=== PATIENT | male | born 1935 ===

== ENCOUNTER 2017-01-19 01:23 | Inpatient (IN) | payer MEDICARE, OTHER ==
--- NOTE | 2017-01-19 01:26 | ED PDOC ---
Arrival/HPI - General Time Seen by Provider: 01/19/17 01:25 Historian: Family, EMS - History of Present Illness Narrative History of Present Illness (Text): 01/19/17 01:26 James Pride is a 81 year old male, whose past medical history includes diabetes, CHF, pneumonia, diabetic neuropathy, and hypertension, who presents to the Emergency department brought in by EMS in respiratory distress requiring emergent intubation in ER. Family present in Emergency department report patient woke up with abrupt onset of worsening shortness of breath tonight. Limited HPI and ROS due to respiratory distress. PMD: Dr. Norah Kwan Time/Duration: Prior to Arrival Symptom Onset: Sudden Symptom Course: Worsening Severity Level: Severe Activities at Onset: Rest, Light Context: Home Past Medical History - Provider Review Nursing Documentation Reviewed: Yes - Infectious Disease Hx of Infectious Diseases: None - Tetanus Immunization Tetanus Immunization: Unknown - Cardiac Hx Cardiac Disorders: Yes Hx Congestive Heart Failure: Yes Hx Hypertension: Yes - Pulmonary Hx Respiratory Disorders: Yes Hx Pneumonia: Yes (HAD DOUBLE PNEUMONIA H/O) - Neurological Hx Neurological Disorder: Yes (NEUROPATHY) - HEENT Hx HEENT Disorder: Yes Hx Cataracts: Yes (BILATERAL SX WITH LENS IMPLANT) - Renal Hx Renal Disorder: No - Endocrine/Metabolic Hx Endocrine Disorders: Yes Hx Diabetes Mellitus Type 2: Yes - Hematological/Oncological Hx Blood Disorders: No - Integumentary Hx Dermatological Disorder: No - Musculoskeletal/Rheumatological Hx Falls: No - Gastrointestinal Hx Gastrointestinal Disorders: No - Genitourinary/Gynecological Hx Genitourinary Disorders: No - Psychiatric Hx Psychophysiologic Disorder: Yes (BEER DRINKER H/O) Hx Depression: No Hx Emotional Abuse: No Hx Physical Abuse: No Hx Substance Use: No - Past Surgical History Past Surgical History: No Previous - Suicidal Assessment Feels Threatened In Home Enviroment: No Family/Social History - Physician Review Nursing Documentation Reviewed: Yes Family/Social History: No Known Family HX Smoking Status: Never Smoked Hx Alcohol Use: Yes (USED TO DRINK BEER.H/O) Hx Substance Use: No Allergies/Home Meds Allergies/Adverse Reactions: Allergies No Known Allergies Allergy (Verified 12/08/16 15:02) Home Medications: Home Meds Medication Instructions Recorded Confirmed Furosemide [Lasix] 40 mg PO DAILY 03/13/14 12/08/16 Simvastatin 40 mg PO DAILY 03/13/14 12/08/16 Gabapentin [Neurontin] 300 mg PO TID 12/08/16 12/08/16 Metoprolol Tartrate [Lopressor] 50 mg PO BID 12/08/16 12/08/16 Naproxen [Naprosyn Tab] 375 mg PO BID 12/08/16 12/08/16 Potassium Chloride [Klor-Con 10] 10 meq PO DAILY 12/08/16 12/08/16 Aspirin [Adult Low Dose Aspirin EC] 81 mg PO DAILY 12/12/16 12/12/16 Doxycycline Hyclate [Doryx] 100 mg PO BID 12/12/16 12/12/16 GlipiZIDE SR [Glucotrol XL] 10 mg PO DAILY 12/12/16 12/12/16 Losartan [Cozaar] 50 mg PO DAILY 12/12/16 12/12/16 Metformin HCl [Glucophage] 500 mg PO BID 12/12/16 12/12/16 hydrALAZINE [Apresoline] 25 mg PO BID 12/12/16 12/12/16 Review of Systems - Review of Systems Systems not reviewed;Unavailable: Respiratory Distress Respiratory: SOB Physical Exam Vital Signs Reviewed: Yes Vital Signs Temp Pulse Resp BP Pulse Ox 01/19/17 04:11 62 62 H 101/61 96 01/19/17 03:33 66 20 107/63 99 01/19/17 03:00 73 20 138/82 100 01/19/17 02:00 97.5 F L 78 22 129/79 100 01/19/17 01:50 80 29 H 165/89 H 99 01/19/17 01:37 165/89 H 01/19/17 01:25 98.8 F 100 H 32 H 139/102 H 99 Temperature: Afebrile Blood Pressure: Hypertensive Pulse: Tachycardic Respiratory Rate: Tachypneic Appearance: Positive for: Non-Toxic, Uncomfortable, Other (Severe respiratory distress) Pain Distress: None Mental Status: Positive for: other (Non-communicative) - Systems Exam Head: Present: Atraumatic, Normocephalic Pupils: Present: PERRL Extroacular Muscles: Present: EOMI Conjunctiva: Present: Normal Mouth: Present: Moist Mucous Membranes Respiratory/Chest: Present: Respiratory Distress, Accessory Muscle Use, Rales ( Rales bilaterally), Tachypneic Cardiovascular: Present: Normal S1, S2, Tachycardic. No: Murmurs Abdomen: Present: Normal Bowel Sounds. No: Tenderness, Distention, Peritoneal Signs Upper Extremity: Present: Normal Inspection. No: Cyanosis, Edema Lower Extremity: Present: Normal Inspection. No: Edema Neurological: Present: CN II-XII Intact, Other (Agitated, non-communicative) Skin: Present: Warm, Dry, Normal Color. No: Rashes Psychiatric: Present: Agitated Medical Decision Making ED Course and Treatment: 01/19/17 01:26 Impression: 81 year old male brought in for severe respiratory distress. Differential Diagnosis include but are not limited to: CHF exacerbation vs. pneumonia vs. respiratory failure vs. ACS Plan: -- EKG -- Chest X-ray -- Labs, cardiac enzymes, BNP -- Etomidate -- Lasix -- Propofol -- Reassess and disposition Prior Visits: Notes and results from previous visits were reviewed. 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 Timeout: A timeout to verify the correct patient, procedure, and site was performed. Indication: Severe respiratory distress Pre-oxygenation: [id number], Medications: Etomidate, Propofol. See MAR for details. ETT Size: 7.5 gauge Confirmation: Cords directly visualized as tube passed, good bilateral breath sounds, positive CO2 detector color change, tube fogging, adequate chest rise, improving pulse oximetry reading, improved skin color, and absence of gastric sounds,. ETT Secured: The cuff was inflated and the tube was secured appropriately at a distance of 21 cm at the lip. Post-Procedure: There were no immediate complications. CXR Confirmation: Yes 01/19/17 02:38 Reviewed EKG, NSR at 78 bpm. 1st degree AV block, LAD, inferior infarct. Non- specific ST/T wave changes. Reviewed radiology, Chest X-ray shows ET tube above ramiro, increased pulmonary vascular congestion. 01/19/17 03:[address] Kwan, who is aware and agrees with plan. Accepts pt in to her service. Requests consult with Rajendra and Dr. Gomez on consult. 01/19/17 03:[address] Wise, electrical products engineer, who is aware and agrees with plan. technical operations vice president notified. Pt will be admitted to the ICU for respiratory failure and CHF under Dr. Kwan' s service. - Critical Care Critical Care Minutes: 30 minutes - Lab Interpretations Microbiology Results: Microbiology Results 01/19/17 01:45 Blood Blood Culture - Preliminary NO GROWTH AFTER 24 HOURS 01/19/17 01:15 Blood Blood Culture - Preliminary NO GROWTH AFTER 24 HOURS Lab Results: 01/19/17 02:21 01/19/17 02:21 Lab Results 01/19/17 02:40: pCO2 42, pO2 322.0 H, HCO3 24.3, ABG pH 7.37, ABG Total CO2 25.6 , ABG O2 Saturation 99.3 H, ABG O2 Content 14.1 L, ABG Base Excess -1.0, ABG Hemoglobin 9.7 L, ABG Carboxyhemoglobin 1.2, POC ABG HHb (Measured) 0.7, ABG Methemoglobin 0.9, ABG O2 Capacity 14.2 L, Hgb O2 Saturation 97.2, FiO2 100.0 01/19/17 02:22: Phosphorus 5.6 H, Magnesium 2.2 01/19/17 02:21: WBC 15.4 H D, RBC 3.65, Hgb 10.6 L, Hct 32.5 L, MCV 89.0, MCH 29.0, MCHC 32.6, RDW 14.0, Plt Count 343, MPV 10.5, PT 10.2, INR 0.94, APTT 25.4 , Sodium 139, Potassium 3.8, Chloride 101, Carbon Dioxide 27, Anion Gap 15, BUN 28 H, Creatinine 2.2 H, Est GFR ( Amer) 35, Est GFR (Non-Af Amer) 29, Random Glucose 240 H, Calcium 8.6, Total Bilirubin 0.7, AST 29, ALT 31, Alkaline Phosphatase 86, Lactate Dehydrogenase 545, Total Creatine Kinase 101, Troponin I < 0.01 D, NT-Pro-B Natriuret Pep 2080 H, Total Protein 7.2, Albumin 3.9, Globulin 3.3, Albumin/Globulin Ratio 1.2 I have reviewed the lab results: Yes - RAD Interpretation Radiology Orders: 01/19/17 01:42 CHEST PORTABLE [RAD] Stat Flat Folder: ED Physician - EKG Interpretation Interpreted by ED Physician: Yes Type: 12 lead EKG - Medication Orders Current Medication Orders: Enoxaparin Sodium (Lovenox) 30 mg SC DAILY [facility] Last Admin: 01/20/17 09:43 Dose: 30 MG Subcutaneous Administrations Document 01/20/17 09:43 [email or web address] (Rec: 01/20/17 09:43 [id number] [facility]- MEDICAL NURSE) Injection Site MAR Injection Site Left Abdomen Charges for Administration # of Subcutaneous Administrations 1 Furosemide (Lasix) 30 mg IVP BID [facility] Last Admin: 01/20/17 10:01 Dose: 30 MG MAR Blood Pressure Document 01/20/17 10:01 [email or web address] (Rec: 01/20/17 10:01 [email or web address] [facility]- MEDICAL NURSE) Blood Pressure Blood Pressure (100/60-150/90) 146/72 IVP Administration Document 01/20/17 10:01 [email or web address] (Rec: 01/20/17 10:01 [email or web address] [facility]- MEDICAL NURSE) Charges for Administration # of IVP Administrations 1 Azithromycin (Zithromax 500mg In Ns) 250 mls @ 167 mls/hr IVPB DAILY [facility] PRN Reason: Protocol Last Admin: 01/20/17 09:40 Dose: 167 MLS/HR eMAR Start Stop Document 01/20/17 09:40 [email or web address] (Rec: 01/20/17 09:41 [email or web address] [facility]- MEDICAL NURSE) Intravenous Solution Start Date 01/20/17 Start Time 09:40 End Date 01/20/17 End time 11:10 Total Infusion Time 90 Ceftriaxone Sodium (Rocephin 1 Gram Ivpb) 100 mls @ 100 mls/hr IVPB DAILY [facility] PRN Reason: Protocol Last Admin: 01/20/17 09:40 Dose: 100 MLS/HR eMAR Start Stop Document 01/20/17 09:40 [email or web address] (Rec: 01/20/17 09:40 [email or web address] [facility]- MEDICAL NURSE) Intravenous Solution Start Date 01/20/17 Start Time 09:40 End Date 01/20/17 End time 10:40 Total Infusion Time 60 Insulin Human Regular (Humulin R Low) 0 units SC ACHS [facility] PRN Reason: Protocol Last Admin: 01/20/17 16:18 Dose: Not Given Non-Admin Reason: Blood Sugar Parameter MAR Blood Glucose Document 01/20/17 16:18 [email or web address] (Rec: 01/20/17 16:18 [id number]) Blood Glucose Finger Stick Blood Glucose (70-120) 135 Metoprolol Tartrate (Lopressor) 50 mg PO BID [facility] Last Admin: 01/20/17 09:41 Dose: 50 MG MAR Pulse and Blood Pressure Document 01/20/17 09:41 [email or web address] (Rec: 01/20/17 09:42 [email or web address] [facility]) Pulse Pulse Rate (60-90) 75 Blood Pressure Blood Pressure (100/60-150/90) 146/72 Pantoprazole Sodium (Protonix Inj) 40 mg IVP DAILY [facility] Last Admin: 01/20/17 09:44 Dose: 40 MG IVP Administration Document 01/20/17 09:44 [email or web address] (Rec: 01/20/17 09:44 [email or web address] [facility]) Charges for Administration # of IVP Administrations 1 Potassium Chloride (Klor-Con 10) 10 meq PO BRK [facility] Discontinued Medications Enoxaparin Sodium (Lovenox) 30 mg SC DAILY [facility] PRN Reason: Protocol Enoxaparin Sodium (Lovenox) 40 mg SC DAILY [facility] PRN Reason: Protocol Enoxaparin Sodium (Lovenox) 40 mg SC DAILY [facility] Last Admin: 01/19/17 09:37 Dose: 40 MG Subcutaneous Administrations Document 01/19/17 09:37 RAMOM (Rec: 01/19/17 09:37 RAMOM [facility]) Injection Site MAR Injection Site Left Abdomen Charges for Administration # of Subcutaneous Administrations 1 Enoxaparin Sodium (Lovenox) 70 mg SC DAILY [facility] Etomidate (Amidate) 20 mg IVP STAT STA Stop: 01/19/17 01:46 Last Admin: 01/19/17 01:30 Dose: 20 MG IVP Administration Document 01/19/17 01:30 BR[facility] (Rec: 01/19/17 02:23 [id number]) Charges for Administration # of IVP Administrations 1 Furosemide (Lasix) Confirm Administered Dose 100 mg .ROUTE .STK-MED ONE Stop: 01/19/17 01:38 Last Admin: 01/19/17 02:24 Dose: Furosemide (Lasix) 80 mg IVP ONCE ONE Stop: 01/19/17 01:46 Last Admin: 01/19/17 01:37 Dose: 80 MG MAR Blood Pressure Document 01/19/17 01:37 BRADFORD (Rec: 01/19/17 02:24 [facility] [id number]) Blood Pressure Blood Pressure (100/60-150/90) 165/89 IVP Administration Document 01/19/17 01:37 [facility] (Rec: 01/19/17 02:24 [id number] [id number]) Charges for Administration # of IVP Administrations 1 Furosemide (Lasix) 60 mg IVP BID [facility] Last Admin: 01/19/17 09:37 Dose: 60 MG MAR Blood Pressure Document 01/19/17 09:37 RAMOM (Rec: 01/19/17 09:37 RAMOM [facility]- MEDICAL NURSE) Blood Pressure Blood Pressure (100/60-150/90) 166/99 IVP Administration Document 01/19/17 09:37 RAMOM (Rec: 01/19/17 09:37 RAMOM [facility]- MEDICAL NURSE) Charges for Administration # of IVP Administrations 1 Furosemide (Lasix) 20 mg IVP ONCE ONE Stop: 01/19/17 17:39 Last Admin: 01/19/17 18:07 Dose: 20 MG MAR Blood Pressure Document 01/19/17 18:07 RAMOM (Rec: 01/19/17 18:07 RAMOM [facility]- MEDICAL NURSE) Blood Pressure Blood Pressure (100/60-150/90) 136/52 IVP Administration Document 01/19/17 18:07 RAMOM (Rec: 01/19/17 18:07 RAMOM [facility]- MEDICAL NURSE) Charges for Administration # of IVP Administrations 1 Furosemide (Lasix) Confirm Administered Dose 40 mg .ROUTE .STK-MED ONE Stop: 01/20/17 09:37 Last Admin: 01/20/17 09:41 Dose: Propofol (Diprivan) 100 mls @ 2.244 mls/hr IV .Q24H PRN; Protocol; 5 MCG/KG/MIN PRN Reason: TITRATE PER MD ORDER Last Titration: 01/19/17 07:50 Dose: 0 MCG/KG/MIN Titration Intervention Document 01/19/17 07:50 RAMOM (Rec: 04/06/17 08:03 RAMOM [facility]- MEDICAL NURSE) Titration Dosing Titration Dose 0 IV Rate 0 Intake/Decrease Pause Azithromycin (Zithromax 500mg In Ns) 250 mls @ 166.667 mls/hr IV STAT STA PRN Reason: Protocol Stop: 01/19/17 05:08 Last Admin: 01/19/17 04:00 Dose: 166.667 MLS/HR eMAR Start Stop Document 01/19/17 04:00 BRADFORD (Rec: 01/19/17 04:01 [id number] [id number]) Intravenous Solution Start Date 01/19/17 Start Time 04:00 End Date 01/19/17 End time 05:00 Total Infusion Time 60 Ceftriaxone Sodium (Rocephin 1 Gram Ivpb) 100 mls @ 200 mls/hr IV ONCE [facility] PRN Reason: Protocol Stop: 01/19/17 04:08 Last Admin: 01/19/17 04:00 Dose: 200 MLS/HR eMAR Start Stop Document 01/19/17 04:00 BRADFORD (Rec: 01/19/17 04:00 [facility] [id number]) Intravenous Solution Start Date 01/19/17 Start Time 04:00 End Date 01/19/17 End time 04:30 Total Infusion Time 30 Potassium Chloride/Dextrose (Potassium Chl 40 Meq In D5w) 250 mls @ 60 mls/hr IV .Q4H10M [facility] Potassium Chloride (Potassium Chloride 10 Meq/100 Ml) 100 mls @ 100 mls/hr IVPB Q1H [facility] Stop: 01/19/17 14:29 Last Admin: 01/19/17 13:48 Dose: 100 MLS/HR eMAR Start Stop Document 01/19/17 13:48 RAMOM (Rec: 01/19/17 13:48 RAMOM [facility]) Intravenous Solution Start Date 01/19/17 Start Time 13:50 End Date 01/19/17 End time 14:50 Total Infusion Time 60 Potassium Chloride (K-Dur 20 Meq Er Tab) 40 meq PO STAT STA Stop: 01/20/17 11:32 Last Admin: 01/20/17 11:43 Dose: 40 MEQ - Scribe Statement The provider has reviewed the documentation as recorded by the Mariusz Robbins Provider Attestation: All medical record entries made by the Scribe were at my direction and personally dictated by me. I have reviewed the chart and agree that the record accurately reflects my personal performance of the history, physical exam, medical decision making, and the department course for this patient. I have also personally directed, reviewed, and agree with the discharge instructions and disposition. Disposition/Present on Arrival - Present on Arrival Any Indicators Present on Arrival: No History of DVT/PE: No History of Uncontrolled Diabetes: No Urinary Catheter: No History of Decub. Ulcer: No History Surgical Site Infection Following: None - Disposition Have Diagnosis and Disposition been Completed?: Yes Diagnosis: CHF exacerbation, Pneumonia, Respiratory failure Disposition: HOSPITALIZED Disposition Time: 03:43 Patient Plan: Admission Patient Problems: Current Active Problems Problem Status Diagnosed CHF exacerbation Acute Pneumonia Acute Respiratory failure Acute Condition: GUARDED
[2017-01-19] MEDS ORDERED: Etomidate 20 mg/10ml Inj IVP STA (01:45)
[2017-01-19 03:02] LABS: HEMATOCRIT 32.5 % (42.0-52.0); MEAN CORPUSCULAR HGB CONC 32.6 g/dl (31.0-37.0); MEAN PLATELET VOLUME 10.5 fl (7.0-11.0)
[2017-01-19 03:02] LABS: ARTERIAL BLOOD GAS HCO3 24.3 mmol/L (21-28); ARTERIAL BLOOD GAS O2 CAPACITY 14.2 mL/dl (16-24); ARTERIAL BLOOD GAS O2 CONTENT 14.1 ML/dl (15-23); ARTERIAL BLOOD GAS PH 7.37 (7.35-7.45); ARTERIAL BLOOD HGB O2 SAT 97.2 % (95.0-98.0); CARBOXYHEMOGLOBIN 1.2 % (0.5-1.5); HHB 0.7 % (0-5); METHEMOGLOBIN 0.9 % (0.0-3.0)
[2017-01-19 03:06] LABS: INR 0.94 (0.93-1.08); PARTIAL THROMBOPLASTIN TIME 25.4 Seconds (23.7-30.8)
[2017-01-19 03:07] LABS: ALB/GLOB RATIO 1.2 (1.1-1.8); ALKALINE PHOSPHATASE 86 U/L (38-133); ALT/SGPT 31 U/L (7-56); AST/SGOT 29 U/L (15-59); BILIRUBIN,TOTAL 0.7 mg/dL (0.2-1.3); BLOOD UREA NITROGEN 28 mg/dL (7-21); CALCIUM 8.6 mg/dL (8.4-10.5); CARBON DIOXIDE 27 mmol/L (21-33); CHLORIDE 101 mmol/L (98-107); GFR AFRICAN-AMERICAN 35; GLUCOSE,RANDOM 240 mg/dL (70-110); POTASSIUM 3.8 mmol/L (3.6-5.0); SODIUM 139 mmol/L (132-148); TOTAL PROTEIN 7.2 g/dL (5.8-8.3)
[2017-01-19 03:09] LABS: WHITE BLOOD COUNT 15.4 10^3/ul (4.5-11.0)
[2017-01-19 03:24] LABS: TROPONIN I < 0.01 ng/mL
[2017-01-19] MEDS ORDERED: cefTRIAXone 1 gm 100 ML IV STA (03:39)
[2017-01-19] MEDS ORDERED: Azithromycin 500MG/NS 250ml 250 ML IV STA (03:39)
[2017-01-19 04:49] LABS: MAGNESIUM 2.2 mg/dL (1.7-2.2); PHOSPHOROUS 5.6 mg/dL (2.5-4.5)
[2017-01-19 06:31] LABS: ARTERIAL BLOOD GAS HCO3 23.7 mmol/L (21-28); ARTERIAL BLOOD GAS O2 CAPACITY 14.9 mL/dl (16-24); ARTERIAL BLOOD GAS O2 CONTENT 14.7 ML/dl (15-23); ARTERIAL BLOOD GAS PH 7.35 (7.35-7.45); ARTERIAL BLOOD HGB O2 SAT 96.2 % (95.0-98.0); CARBOXYHEMOGLOBIN 1.5 % (0.5-1.5); HHB 1.3 % (0-5)
--- NOTE | 2017-01-19 06:41 | CP.PCM.CON ---
<ShivamDavid - Last Filed: 01/19/17 07:06> History of Present Illness - History of Present Illness History of Present Illness: ICU Consult Note - David Langley PGY 1 HPI: Patient is a 81yo male with past medical history of congestive heart failure (LVEF 45-50% on 11/2016), diabetes mellitus type 2, diabetic neuropathy and hypertension that presented to [facility] via EMS in respiratory distress and was subsequently emergently intubated in the ED. Family was present at bedside and reported that the patient woke up c/o sudden onset shortness of breath. They reported that the patient had been noncompliant with his lasix medication if he felt his blood pressure was low. On arrival to the ED, patient's vitals were as follows: temperature 98.8F, blood pressure 139/ 102, heart rate 100bpm, respiratory rate 32, o2 sat 99% on BiPAP. His labs were notable for a WBC count of 15.4, BUN/Cr 28/2.2, BNP 2080. An EKG revealed normal sinus rhythm at 78bpm with 1st degree AV block, LAD and nonspecific ST-T wave changes. Chest xray revealed increased pulmonary vascular congestion consistent with CHF. The patient is currently on PRVC 400/20/5/100%. He was subsequently taken to the ICU for further management and treatment of acute decompensated congestive heart failure. 12point ROS limited due to patient status PMHx: CHF, DM2, diabetic neuropathy, hypertension, hypercholesterolemia PSHx: unknown Allergies: NKDA Family Hx: Noncontributory Social Hx: No history of smoking, alcohol and illicit drug use PMD: Dr. Norah Kwan Past Patient History - Infectious Disease Hx of Infectious Diseases: None - Tetanus Immunizations Tetanus Immunization: Unknown - Past Social History Smoking Status: Never Smoked - CARDIAC Hx Cardiac Disorders: Yes Hx Congestive Heart Failure: Yes Hx Hypertension: Yes - PULMONARY Hx Respiratory Disorders: Yes Hx Pneumonia: Yes (HAD DOUBLE PNEUMONIA H/O) - NEUROLOGICAL Hx Neurological Disorder: Yes (NEUROPATHY) - HEENT Hx HEENT Problems: Yes Hx Cataracts: Yes (BILATERAL SX WITH LENS IMPLANT) - RENAL Hx Chronic Kidney Disease: No - ENDOCRINE/METABOLIC Hx Endocrine Disorders: Yes Hx Diabetes Mellitus Type 2: Yes - HEMATOLOGICAL/ONCOLOGICAL Hx Blood Disorders: No - INTEGUMENTARY Hx Dermatological Problems: No - MUSCULOSKELETAL/RHEUMATOLOGICAL Hx Falls: No - GASTROINTESTINAL Hx Gastrointestinal Disorders: No - GENITOURINARY/GYNECOLOGICAL Hx Genitourinary Disorders: No - PSYCHIATRIC Hx Psychophysiologic Disorder: Yes (BEER DRINKER H/O) Hx Depression: No Hx Emotional Abuse: No Hx Physical Abuse: No Hx Substance Use: No - SURGICAL HISTORY Hx Surgeries: Yes (BILATERAL CATARACT SX H/O) - ANESTHESIA Hx Anesthesia: No Hx Anesthesia Reactions: No Hx Malignant Hyperthermia: No Meds Allergies/Adverse Reactions: Allergies Allergy/AdvReac Type Severity Reaction Status Date / Time No Known Allergies Allergy Verified 12/08/16 15:02 - Medications Medications: Current Medications Enoxaparin Sodium (Lovenox) 30 mg SC DAILY [facility] PRN Reason: Protocol Furosemide (Lasix) 60 mg IVP BID [facility] Propofol (Diprivan) 100 mls @ 2.244 mls/hr IV .Q24H PRN; Protocol; 5 MCG/KG/MIN PRN Reason: TITRATE PER MD ORDER Last Admin: 01/19/17 01:55 Dose: 2.244 mls/hr Azithromycin (Zithromax 500mg In Ns) 250 mls @ 167 mls/hr IVPB DAILY [facility] PRN Reason: Protocol Ceftriaxone Sodium (Rocephin 1 Gram Ivpb) 100 mls @ 100 mls/hr IVPB DAILY [facility] PRN Reason: Protocol Insulin Human Regular (Humulin R Low) 0 units SC ACHS [facility] PRN Reason: Protocol Metoprolol Tartrate (Lopressor) 50 mg PO BID [facility] Pantoprazole Sodium (Protonix Inj) 40 mg IVP DAILY [facility] Physical Exam - Constitutional Appears: In Acute Distress - Head Exam Head Exam: ATRAUMATIC, NORMAL INSPECTION, NORMOCEPHALIC - ENT Exam ENT Exam: Mucous Membranes Moist - Respiratory Exam Respiratory Exam: Rales (rales bilaterally). absent: Clear to Auscultation Bilateral, Rhonchi, Wheezes - Cardiovascular Exam Cardiovascular Exam: +S1, +S2. absent: Gallop, Rubs - GI/Abdominal Exam GI & Abdominal Exam: Soft. absent: Distended, Firm, Guarding, Rebound, Tenderness - Extremities Exam Extremities exam: Positive for: normal inspection, pedal edema (2+ pitting edema ) - Neurological Exam Additional comments: intubated and sedated on propofol drip - Skin Skin Exam: Dry, Intact, Normal Color, Warm Results - Vital Signs Recent Vital Signs: Last Vital Signs Temp 97.5 F L 01/19/17 06:29 Pulse 62 01/19/17 06:29 Resp 20 01/19/17 06:29 BP 104/62 01/19/17 06:29 Pulse Ox 97 01/19/17 06:29 - Labs Result Diagrams: 01/19/17 02:21 01/19/17 02:21 Labs: Laboratory Results - last 24 hr 01/19/17 04:18 Lactic Acid 1.9 Assessment & Plan - Assessment and Plan (Free Text) Assessment: 81yo male with history of congestive heart failure (LVEF 45-50% on 11/2016), diabetes mellitus type 2, diabetic neuropathy and hypertension admitted to the ICU for acute hypoxemic respiratory failure secondary to decompensated congestive heart failure. Plan: Neuro: -Patient intubated and sedated on propofol drip -Maintain normothermia Cardio: -Maintain hemodynamic monitoring with goal MAP > 65 -Echocardiogram from 11/2016 reviewed; revealed LVEF of 45-50%; see full report -EKG reviewed -Continue with Lasix 60mg IV BID -Continue with metoprolol 50mg PO BID -HOB > 30' -Strict I's and O's -Daily weight -Cardiology consulted - Dr. Drew Pulm: -Patient intubated and sedated on PRVC 400/20/5/100% -O2 supplementation to maintain spo2>90 and Pao2>60 -CXR reviewed; revealed increased pulmonary vascular congestion -Pulmonary consulted - Dr. Gomez GI: -NPO -GI prophylaxis with protonix Endo: -Maintain euglycemia with blood sugars between 140-180's -Fingersticks ACHS -Humulin low dose ISS Renal: -Monitor and replete electrolytes as needed -Strict I's and O's -Daily weight -Continue to monitor renal function Heme: -DVT prophylaxis with lovenox ID: -Patient afebrile however has leukocytosis and has history of recent admission for pneumonia -Continue with rocephin/azithromycin -Procalcitonin pending -Blood/urine cultures pending Patient seen and case discussed with attending, Dr. Wise - Date & Time Date: 01/19/17 Time: 06:43 <Collin Wise MD - Last Filed: 01/19/17 07:34> Meds - Medications Medications: Current Medications Enoxaparin Sodium (Lovenox) 40 mg SC DAILY [facility] Furosemide (Lasix) 60 mg IVP BID [facility] Propofol (Diprivan) 100 mls @ 2.244 mls/hr IV .Q24H PRN; Protocol; 5 MCG/KG/MIN PRN Reason: TITRATE PER MD ORDER Last Admin: 01/19/17 01:55 Dose: 2.244 mls/hr Azithromycin (Zithromax 500mg In Ns) 250 mls @ 167 mls/hr IVPB DAILY [facility] PRN Reason: Protocol Ceftriaxone Sodium (Rocephin 1 Gram Ivpb) 100 mls @ 100 mls/hr IVPB DAILY [facility] PRN Reason: Protocol Insulin Human Regular (Humulin R Low) 0 units SC ACHS [facility] PRN Reason: Protocol Metoprolol Tartrate (Lopressor) 50 mg PO BID [facility] Pantoprazole Sodium (Protonix Inj) 40 mg IVP DAILY [facility] Results - Vital Signs Recent Vital Signs: Last Vital Signs Temp 97.5 F L 01/19/17 06:29 Pulse 62 01/19/17 06:29 Resp 20 01/19/17 06:29 BP 104/62 01/19/17 06:29 Pulse Ox 97 01/19/17 06:29 - Labs Result Diagrams: 01/19/17 02:21 01/19/17 02:21 Labs: Laboratory Results - last 24 hr 01/19/17 01/19/17 01/19/17 04:18 06:00 07:26 pCO2 43 pO2 117.0 H HCO3 23.7 ABG pH 7.35 ABG Total CO2 25.0 ABG O2 Saturation 98.7 H ABG O2 Content 14.7 L ABG Base Excess -1.9 ABG Hemoglobin 10.7 L ABG Carboxyhemoglobin 1.5 POC ABG HHb (Measured) 1.3 ABG Methemoglobin 1.0 ABG O2 Capacity 14.9 L Hgb O2 Saturation 96.2 FiO2 60.0 POC Glucose (mg/dL) 207 H Lactic Acid 1.9 Attending/Attestation - Attestation I have personally seen and examined this patient.: Yes I have fully participated in the care of the patient.: Yes I have reviewed all pertinent clinical information: Yes Notes (Text): 01/19/17 07:32 -I agree with the above consult H&P completed by the resident physician -Briefly, the patient is a 81 year old man with a history of CHF, DM-2 and HTN who presented with acute respiratory failure due to acute CHF exacerbation, requiring intubation in the ED. He will be diuresed with IV Lasix and also treated empirically for PNA given an elevated WBC of 16.5.
[2017-01-19 07:14] VITALS: BMI 27.4
[2017-01-19] MEDS: Insulin Reg-LOW-Coverage SC SCH ×4 (08:06→22:00)
[2017-01-19 08:28] LABS: TROPONIN I 0.02 ng/mL
[2017-01-19] MEDS: cefTRIAXone 1 gm 100 ML IVPB SCH (09:38)
--- NOTE | 2017-01-19 09:50 | CON ---
DATE: 01/19/2017 This is a 81-year-old gentleman with history of mild systolic left ventricular dysfunction and congestive heart failure who presented this time with increased shortness of breath which was of sudden onset. It is unclear whether patient had chest pain associated with it or not. However, his symptoms very rapidly progressed and by the time he was admitted to [facility], he had to be intubated for impending respiratory failure. No nausea, no vomiting, no diarrhea, no constipation, no chills, no sweats. Chest x-ray showed bilateral vascular congestion. EKG did not show any specific ischemic changes and first set of troponin was negative. He did have acute kidney injury as well and proBNP was also elevated. PAST MEDICAL HISTORY: CHF, left ventricular systolic dysfunction. ALLERGIES: NKDA. FAMILY HISTORY: Noncontributory. HOME MEDICATIONS: Unobtainable. REVIEW OF SYSTEMS: Review of 12 organ systems, other than mentioned in history of present illness, is negative. PHYSICAL EXAMINATION: GENERAL: The patient is off of any drips. The patient is following commands and moves all extremities. The patient is off of sedation and not on any inotrope or vasopressor drip. VITAL SIGNS: Heart rate 67, blood pressure 112/77, respiratory rate 18, end- tidal CO2 on the monitor 42, oxygen saturation 98% on 40% FiO2. The patient tolerates pressure support trial well. He is pulling about 500 mL of tidal volume and his rapid shallow breathing index is 36. HEAD AND NECK: Atraumatic. LUNGS: Clear to auscultation bilaterally. HEART: Regular rate and rhythm. S1, S2 normal. ABDOMEN: Soft, nontender, nondistended. MUSCULOSKELETAL: No C/C/E. NEUROLOGIC: The patient moves all extremities spontaneously. SKIN: Moist. PSYCHIATRIC: The patient is following commands. LABORATORIES: WBC 15.4, hemoglobin 10.6, platelet count 343. Sodium 139, potassium 3.8, chloride 101, carbon dioxide 27, BUN 28, creatinine 2.2, glucose 207, lactic acid 1.9, AST 29, ALT 31. Troponin less than 0.01. ProBNP 2080. INR 0.94. ABG showed 7.35/43/117 on 60% FiO2. CURRENT MEDICATIONS: Regular insulin sliding scale low protocol, Lasix 60 mg IV b.i.d., Lovenox 40 mg subQ daily, Protonix, ceftriaxone daily, azithromycin. Chest x-ray shows bilateral vascular congestion. EKG, no specific signs of ischemia. ASSESSMENT AND PLAN: This is a 81-year-old gentleman who presented with acute onset of shortness of breath and impending respiratory failure in the setting of mild systolic left ventricular dysfunction (ejection fraction 45%) and acute kidney injury. The patient was intubated and diuresis with Lasix 60 mg IV q. 12 started. Today, patient is doing very well on pressure support trial, has good cough, gag reflex, good motor strength in both upper and lower extremities. He is able to lift up his head more than 10 cm off the pillow. His rapid shallow breathing index is 30-40. I do not think he needs any inotropic support at present time (bedside POC Echo did not reveal any significant left ventricular systolic dysfunction). Afterload reduction provided by positive pressure ventilation. Preload reduction provided by diuresis. The patient will be extubated to BiPAP, which will also provide pre and afterload reduction. He is on beta-blockers. As his ejection fraction is 45% (very mild) I will defer risk/benefit assessment of afterload reduction with hydralazine/nitro to cardiology service. Second troponin is pending. The patient does not show signs of chest pain and no ischemic changes on EKG. I doubt acute coronary syndrome and rather noncompliance with his home medication (Lasix) would be to blame for his CHF exacerbation, leading up to cardiogenic pulmonary edema and respiratory failure. I will continue to maintain euvolemia , euglycemia, normothermia and oxygen saturation more than 90%. I will continue with deep venous thrombosis and gastrointestinal prophylaxis. Addendum: patient successfully extubated to BPAP-->did well-->switched to NC ccm time 40 min Deniz Calix MD cc: [id number] TT: 01/19/2017 09:49:49 Confirmation # [id number] Dictation # [id number] en MTDD
[2017-01-19] MEDS ORDERED: Enoxaparin 40 mg Syringe SC SCH (10:00)
[2017-01-19] MEDS ORDERED: Enoxaparin 30 mg Syringe SC SCH ×2 (10:00)
[2017-01-19] MEDS ORDERED: POTASSIUM CHL IV SCH (10:00)
[2017-01-19] MEDS ORDERED: D5W IV SCH (10:00)
--- NOTE | 2017-01-19 10:01 | RAD ---
HISTORY: sob/intubated COMPARISON: 03/13/2014 FINDINGS: LUNGS: No active pulmonary disease. PLEURA: No significant pleural effusion identified, no pneumothorax apparent. CARDIOVASCULAR: Mild cardiomegaly. Evaluation limited due to oblique positioning. ET tube tip positioned approximately 4.7 cm above tracheal ramiro. Nasogastric tube extends to upper abdomen. OSSEOUS STRUCTURES: No significant abnormalities. VISUALIZED UPPER ABDOMEN: Normal. OTHER FINDINGS: None. IMPRESSION: ET tube and NG tube are in grossly appropriate position. No acute infiltrate.
[2017-01-19] MEDS ORDERED: Potassium Chloride 20 mEq 100 ML IVPB SCH (10:15)
[2017-01-19] MEDS: Potassium Chloride 10 mEq 100 ML IVPB SCH ×4 (10:42→13:48)
[2017-01-19 15:26] LABS: TROPONIN I 0.02 ng/mL
--- NOTE | 2017-01-19 18:01 | CARD ---
APPROVED REPORT EKG Measurement Heart [id number] CT 230P59 [id number] <Conclusion> Sinus rhythm with 1st degree AV block Possible Left atrial enlargement Left axis deviation Inferior infarct, age undetermined Abnormal ECG
[2017-01-20 06:13] LABS: ADD MANUAL DIFF? NO
[2017-01-20 06:19] LABS: BASO # 0.03 K/mm3 (0.0-2.0); BASO % 0.3 % (0.0-3.0); EOS # 0.3 (0.0-0.7); EOS % 2.8 % (1.5-5.0); GRAN # 6.75 (1.4-6.5); GRAN % 70.6 % (50.0-68.0); HEMATOCRIT 32.8 % (42.0-52.0); LYMPH # 1.3 (1.2-3.4); LYMPH % 13.6 % (22.0-35.0); MEAN CELL VOLUME 87.7 fL (80.0-105.0); MEAN CORPUSCULAR HEMOGLOBIN 28.9 pg (25.0-35.0); MEAN CORPUSCULAR HGB CONC 32.9 g/dl (31.0-37.0); MEAN PLATELET VOLUME 10.3 fl (7.0-11.0); MONO # 1.2 (0.1-0.6); MONO % 12.7 % (1.0-6.0); PLATELET COUNT 324 10^3/uL (120.0-450.0); WHITE BLOOD COUNT 9.6 10^3/ul (4.5-11.0)
[2017-01-20 06:26] LABS: ALB/GLOB RATIO 1.1 (1.1-1.8); BILIRUBIN,TOTAL 0.6 mg/dL (0.2-1.3); CALCIUM 8.6 mg/dL (8.4-10.5); MAGNESIUM 2.1 mg/dL (1.7-2.2); PHOSPHOROUS 4.5 mg/dL (2.5-4.5); POTASSIUM 3.4 mmol/L (3.6-5.0); TOTAL PROTEIN 7.1 g/dL (5.8-8.3)
[2017-01-20 06:37] LABS: TROPONIN I 0.02 ng/mL
--- NOTE | 2017-01-20 07:27 | CON ---
DATE: 01/19/2017 REASON FOR CONSULTATION: Cardiac evaluation, admitted with congestive heart failure, status post res piratory failure, status post intubated, in ICU 129 bed 7. BRIEF CLINICAL HISTORY: This is a 81-year-old male with past medical history of diabetes, hypertensi on, hyperlipidemia, pneumonia, diabetic nephropathy, hypertension, came to the Emergency Room, [facility] for respiratory distress requiring intubation in the Emergency Room. The patient is currently bein g intubated, sedated, unable to give any history. Information obtained from the medical record and f rom the other digital marketing consultant and ER as well as from the previous chart. PAST MEDICAL HISTORY: Significant for coronary artery disease as well as diabetes, hypertension, hyp erlipidemia. PREVIOUS CARDIAC WORKUP: The patient has a most recent echocardiography of 12/09/2016 that shows eje ction fraction 45-50%, mild to moderate mitral regurgitation, trace to mild aortic regurgitation, mil d tricuspid regurgitation, RV systolic pressure of 41, trace pulmonary insufficiency; no pericardial effusion, dated 12/09/2016. The patient had a myocardial perfusion stress test on 12/12/2016 that sh ows abnormal myocardial study, fixed defect, no reversible ischemia, ejection fraction 39%. The yolande ent had a stress test prior to that, 2-1/2 years ago approximately, dated ____ that showed fi xed defect, minimal reversibility, no significant change or improvement, essentially negative stress test, ejection fraction 53% dated ___. Prior to that, patient had also echocardiography 2013 that shows ejection fraction 50-55%, normal, mild hypokinesis of the apical inferior wall noted, trace aortic regurgitation, mild to moderate mitral regurgitation, trace to mild tricuspid regurgita tion. REVIEW OF SYSTEMS: As per HPI. CURRENT MEDICATIONS: The patient is taking at home hydralazine, simvastatin, Naprosyn, metoprolol, m etformin, losartan, gabapentin, Lasix, doxycycline, cyclobenzaprine, aspirin. REVIEW OF SYSTEMS: As per HPI. PHYSICAL EXAMINATION: VITAL SIGNS: Temperature afebrile, heart rate 71, blood pressure 150/91. HEENT: PERRLA. Extraocular muscles intact. NECK: Supple. No carotid bruits. No thyromegaly. CHEST: Clear to auscultation. HEART: S1, S2 regular. ABDOMEN: Soft. EXTREMITIES: Clubbing and cyanosis negative. BLOOD WORKUP: WBC 15.4, hemoglobin 10.6, hematocrit 32.5, platelet count 343. Chemistry shows sodiu m 139, potassium 3.8, chloride 101, carbon dioxide 28, anion gap of 28, BUN 15, creatinine 2.2. Trop onin 0.01. BNP 2080. IMPRESSION: Chronic renal insufficiency, baseline creatinine 2.4 in 11/2016; congestive heart failur e, fluid overload, mild cardiomyopathy, negative stress test, fixed defect on last admission. Echoca rdiogram shows ejection fraction 45%. The chest x-ray is consistent with congestive heart failure. IMPRESSION: Congestive heart failure, renal insufficiency, fluid overload, decreased left ventricula r function, renal insufficiency, chronic kidney disease, last stress test dated 12/12/2016, ejection fraction is 39%, fixed defect. No change from before. Last echocardiogram also dated 12/09/2016: M ildly decreased left ventricular function, ejection fraction 45-50%, normal chamber size, right ventr icular systolic pressure of 41, mild tricuspid regurgitation, trace pulmonary insufficiency, trace to mild ____ regurgitation, mild to moderate ____ regurgitation, trace to mild aortic regurgitation as well as respiratory failure; congestive heart failure, acute on chronic, secondary to systolic dysfun ction. RECOMMENDATION: Continue diuretics. Extubate. Monitor renal function closely. Depending on the ho spital course. So far, no evidence of acute coronary syndrome. Follow up CPK, troponin. Will follo w with you. Give DVT prophylaxis and give 1 mg/kg subQ q. 24 Lovenox, beta rodney. For aggressive control of hypertension, give hydralazine. Avoid nephrotoxic medication. Will follow with you. Thank you, Dr. Kwan, for providing the opportunity in taking care of this patient. Parker Drew MD cc: [id number] TT: 01/19/2017 17:27:50 Confirmation # [id number] Dictation # [id number] mn 01/20/2017 06:26:23
--- NOTE | 2017-01-20 07:38 | CON ---
DATE: 01/19/2017 REFERRING PHYSICIAN: Dr. Kwan REASON FOR ADMISSION: Respiratory failure. HISTORY OF PRESENT ILLNESS: This is a 81-year-old gentleman, well known to me with coronary artery d isease, history of IL, cardiomyopathy, chronic lung disease, sleep apnea syndrome. He is noncomplian t with followup, did not use his BiPAP and was returned back to vendor. Recently discharged after IL . Now admitted again with pulmonary edema. The patient was intubated with respiratory failure. You dietrich, extubated and placed on noninvasive ventilation. Presently, sitting with nasal cannula, feels better. Family is at bedside. Admitted to have cough, shortness of breath. No chest pain, no nause a, no vomiting, no diarrhea. No leg pain or leg swelling. PAST MEDICAL HISTORY: Cardiomyopathy, coronary artery disease, chronic obstructive lung disease, sle ep apnea syndrome. ALLERGIES: None known. SOCIAL HISTORY: Nonsmoker, nondrinker. FAMILY HISTORY: No significant cardiopulmonary disease reported. MEDICATIONS: He is on insulin coverage, Lasix 60 mg twice a day, metoprolol tartrate 50 mg twice a d ay, Lovenox 70 mg subQ daily, Protonix 40 mg daily, Rocephin 1 gram daily, Zithromax 500 mg daily. REVIEW OF SYSTEMS: No headache, no rhinitis. Admits to have loud snoring, daytime sleepy and tired. No chest pain, no nausea, no dysuria, no leg pain or leg swelling. PHYSICAL EXAMINATION: GENERAL: Lying in the bed, head at 45 degrees. VITAL SIGNS: Temp is 98, heart rate 68, respiratory rate is 20, blood pressure 135/97, pulse ox 98% on 35% oxygen. HEENT: Moist mucous membranes. Crowded airway. Mallampati score is 4. NECK: Supple. No JVD. LUNGS: Has a few crackles at the bases, scattered rhonchi. HEART: S1, S2. ABDOMEN: Soft, nontender. No organomegaly. EXTREMITIES: No edema. NEUROLOGIC: Awake, alert, follows simple commands. LABORATORY DATA: Shows hemoglobin 10.6, hematocrit 32.5, WBC 15.4, platelet is 343. INR is 0.94, PT T is 25. ABG shows pH 7.35, pCO2 43, O2 117. This is on vent on 60% oxygen. Sodium 139, potassium 3.8, chloride 101, bicarbonate 27, BUN 28, creatinine 2.2, glucose 240, calcium is 8.6, phosphorus 5. 6, magnesium 2.2, AST 29, ALT 31, alkaline phosphatase is 86. ProBNP 2080. Troponin 0.02. Procalci tonin 0.28. Chest x-ray shows CHF. IMPRESSION AND PLAN: Chronic obstructive lung disease, hypertension, resolving pulmonary infiltrate, sleep apnea syndrome, renal insufficiency, cardiomyopathy. Spoke to patient and family at bedside. All their questions answered. We will continue BiPAP while sleeping. Keep head elevated at 45 degr ees. Inhaled bronchodilator. Continue diuretics. Follow up labs in the morning. Will need to repe at attended sleep study as outpatient. Thank you and we will follow with you. Parker Gomez MD cc: [id number] TT: 01/20/2017 07:38:16 Confirmation # [id number] Dictation # [id number] en
[2017-01-20] MEDS: Insulin Reg-LOW-Coverage SC SCH ×4 (07:44→22:00)
--- NOTE | 2017-01-20 08:00 | HP ---
CHIEF COMPLAINT: Shortness of breath, coughing, chest pain. HISTORY OF PRESENT ILLNESS: The patient is a 81-year-old male with past medical history of non-insulin dependent diabetes mellitus, uncontrolled; congestive heart failure, pneumonia, diabetic nephropathy, hypertension, came to the Emergency Room by EMS in respiratory distress requiring emergent intubation in the ER. was present on the bedside. According to family, patient just abruptly woke up with onset of worsening shortness of breath. First, he called his brother. His plan was to go to the hospital with the car. As soon as he started really shortness of breath and decided that he could not breathe and having chest pain, then they called 911 and brought the patient in the Emergency Room. I saw the patient in the unit. At that time, he was extubated. was on the bedside. Feeling a little bit better. PAST MEDICAL HISTORY: Congestive heart failure, hypertension, history of pneumonia, neuropathy, bilateral lens implants; diabetes mellitus, type 2, noninsulin requiring. FAMILY HISTORY: Father and mother noncontributory. HABITS: Never smoked. Drugs: Never. Alcohol: Used to drink beer, history of socially. ALLERGIES: The patient is not allergic with any medications. HOME MEDICATIONS: Lasix, simvastatin, Neurontin, Lopressor, Naprosyn, aspirin, doxycycline, glipizide, Cozaar, metformin, hydralazine. REVIEW OF SYSTEMS: The patient seen and examined on the bedside in the unit. The patient is extubated. is sitting on the bedside. Having lunch. Feels better. Still having shortness of breath, but it is better. No headache , no dizziness. No chest pain, no palpitation. No hematuria or hematochezia. He does not have fever, does not look toxic. PHYSICAL EXAMINATION: VITAL SIGNS: Temperature 98.6 , blood pressure 135/79, respiratory rate 19, pulse 80 , oxygenation 98%. HEENT: Head normocephalic, atraumatic. Eyes: PERRLA. Extraocular muscles intact. Conjunctivae pink. Eyelids unremarkable. Nose patent. Mucous membranes moist. NECK: Supple. No carotid bruit. No JVD or thyromegaly. CHEST: Bilaterally symmetrical. HEART: S1, S2 positive. LUNGS: Wheezing bilaterally. CARDIOVASCULAR: S1, S2 positive. ABDOMEN: Soft. Bowel sounds present. No organomegaly. EXTREMITIES: No edema, no cyanosis. NEUROLOGIC: The patient is awake, alert and moving all 4 extremities. No focal deficits. LABORATORY DATA: White blood cells 15.4, hemoglobin 10.6, hematocrit 32.5, platelets 343. Sodium 139, potassium 3.8, BUN 28, creatinine 2.2, glucose 207, phosphorus 5.6. Liver function tests within normal limits. BNP 20,080. ASSESSMENT AND PLAN: The patient is a 81-year-old male with leukocytosis, anemia, renal insufficiency, hyperglycemia, congestive heart failure, has history of congestive heart failure, left ventricular ejection fraction of 45-50 % in 11/2016, diabetic nephropathy, hypertension, came with respiratory distress and subsequently in the Emergency Room was intubated, history of pneumonia, left ventricular systolic dysfunction. The patient got Lasix. Today , the patient is doing better. Extubated today. Rapid shallow breathing index is 30-40. Bedside echo did not reveal any significant left ventricular systolic dysfunction. Afterload reduction provided by positive pressure ventilation. Preload reduction provided by diuretics. According to Dr. Calix, looks like patient does not have acute coronary syndrome and rather noncompliance with his home medication, Lasix, would be the blame of his congestive heart failure exacerbation leading up to the cardiac, pulmonary edema and respiratory failure. Continue present treatment. Education done. GI and DVT prophylaxis. Repeat labs. Will follow up. Court Kwan MD cc: [id number] TT: 01/20/2017 07:59:53 mn [id number]
[2017-01-20] MEDS: Azithromycin 500MG/NS 250ml 250 ML IVPB SCH (09:40)
[2017-01-20] MEDS: cefTRIAXone 1 gm 100 ML IVPB SCH (09:40)
[2017-01-20] MEDS: Enoxaparin 30 mg Syringe SC SCH (09:43)
--- NOTE | 2017-01-20 09:50 | CP.CCUPN ---
<Barbi Gabriel - Last Filed: 01/20/17 10:41> CCU Subjective - Physician Review Events Since Last Encounter (Free Text): 01/20/17 09:47 Patient seen and examined bedside. No acute events overnight. Tolerating PO diet. Tolerating NC. Patient denies CP, abd pain, n/v, fevers, chills. Patient states SOB has significantly improved since admission and is almost back to baseline. Critical Care Time Spent (in minutes): 30 CCU Objective - Vital Signs / Intake & Output Vital Signs (Last 4 hours): Vital Signs Temp Pulse Resp BP Pulse Ox 01/20/17 09:41 75 146/72 01/20/17 08:00 98.2 F 77 17 149/81 98 01/20/17 07:00 62 15 141/81 98 01/20/17 06:00 62 17 142/84 98 Intake and Output (Last 8hrs): Intake & Output 01/19/17 01/20/17 01/20/17 22:59 06:59 14:59 Intake Total 878 0 Output Total 3650 1200 Balance -2772 -1200 Weight 165 lb Intake: IV 518 Right Antecubital 500 left antecubital 18 Oral 360 0 Output: Urine 3650 1200 Urethral (Oneill) 3650 1200 Other: Voiding Method Indwelling Catheter Indwelling Catheter # Bowel Movements 0 0 - Physical Exam Head: Positive for: Atraumatic, Normocephalic Pupils: Positive for: PERRL Extroacular Muscles: Positive for: EOMI Conjunctiva: Positive for: Normal Mouth: Positive for: Moist Mucous Membranes Respiratory/Chest: Positive for: Respiratory Distress, Accessory Muscle Use, Rales (Rales bilaterally), Tachypneic Cardiovascular: Positive for: Normal S1, S2, Tachycardic. Negative for: Murmurs Abdomen: Positive for: Normal Bowel Sounds. Negative for: Tenderness, Distention, Peritoneal Signs Upper Extremity: Positive for: Normal Inspection. Negative for: Cyanosis, Edema Lower Extremity: Positive for: Normal Inspection. Negative for: Edema Neurological: Positive for: CN II-XII Intact, Other (Agitated, non-communicative ) Skin: Positive for: Warm, Dry, Normal Color. Negative for: Rashes Psychiatric: Positive for: Agitated - Medications Active Medications: Active Medications Generic Name Dose Route Start Last Admin Trade Name Freq PRN Reason Stop Dose Admin Enoxaparin Sodium 30 mg 01/20/17 10:00 01/20/17 09:43 Lovenox SC 30 mg DAILY FADY Administration Furosemide 60 mg 01/19/17 10:00 01/19/17 09:37 Lasix IVP 60 mg BID FADY Administration Azithromycin 250 mls @ 167 mls/hr 01/20/17 10:00 01/20/17 09:40 Zithromax 500mg In Ns IVPB 167 mls/hr DAILY FADY Administration Protocol Ceftriaxone Sodium 100 mls @ 100 mls/hr 01/19/17 10:00 01/20/17 09:40 Rocephin 1 Gram Ivpb IVPB 100 mls/hr DAILY FADY Administration Protocol Insulin Human Regular 0 units 01/19/17 07:30 01/20/17 07:44 Humulin R Low SC Not Given ACHS FADY Protocol Metoprolol Tartrate 50 mg 01/19/17 10:00 01/20/17 09:41 Lopressor PO 50 mg BID FADY Administration Pantoprazole Sodium 40 mg 01/19/17 10:00 01/20/17 09:44 Protonix Inj IVP 40 mg DAILY FADY Administration - Patient Studies Lab Studies: Lab Studies 01/20/17 01/20/17 01/19/17 Range/Units 07:23 06:00 22:01 WBC 9.6 D (4.5-11.0) 10^3/ul RBC 3.74 (3.5-6.1) 10^6/uL Hgb 10.8 L (14.0-18.0) gm/dL Hct 32.8 L (42.0-52.0) % MCV 87.7 (80.0-105.0) fL MCH 28.9 (25.0-35.0) pg MCHC 32.9 (31.0-37.0) g/dl RDW 14.0 (11.5-14.5) % Plt Count 324 (120.0-450.0) 10^3/uL MPV 10.3 (7.0-11.0) fl Gran % 70.6 H (50.0-68.0) % Lymph % (Auto) 13.6 L (22.0-35.0) % [place] % (Auto) 12.7 H (1.0-6.0) % Eos % (Auto) 2.8 (1.5-5.0) % Baso % (Auto) 0.3 (0.0-3.0) % Gran # 6.75 H (1.4-6.5) Lymph # 1.3 (1.2-3.4) [place] # 1.2 H (0.1-0.6) Eos # 0.3 (0.0-0.7) Baso # 0.03 (0.0-2.0) K/mm3 Sodium 142 (132-148) mmol/L Potassium 3.4 L (3.6-5.0) mmol/L Chloride 102 (98-107) mmol/L Carbon Dioxide 30 (21-33) mmol/L Anion Gap 13 (10-20) BUN 31 H (7-21) mg/dL Creatinine 2.5 H (0.5-1.4) mg/dL Est GFR ( Amer) 30 Est GFR (Non-Af Amer) 25 POC Glucose (mg/dL) 112 H 88 (65-110) mg/dL Random Glucose 105 (70-110) mg/dL Calcium 8.6 (8.4-10.5) mg/dL Phosphorus 4.5 (2.5-4.5) mg/dL Magnesium 2.1 (1.7-2.2) mg/dL Total Bilirubin 0.6 (0.2-1.3) mg/dL AST 24 (15-59) U/L ALT 40 (7-56) U/L Alkaline Phosphatase 79 (38-133) U/L Lactate Dehydrogenase 473 (333-699) U/L Total Creatine Kinase 67 (35-230) U/L Troponin I 0.02 ng/mL Total Protein 7.1 (5.8-8.3) g/dL Albumin 3.7 (3.0-4.8) g/dL Globulin 3.4 gm/dL Albumin/Globulin Ratio 1.1 (1.1-1.8) Triglycerides 206 H (35-160) mg/dL Cholesterol 170 (130-200) mg/dL LDL Cholesterol Direct 73 (0-129) mg/dL HDL Cholesterol 36 (29-60) mg/dL Procalcitonin (0.19-0.49) NG/ML TSH 3rd Generation 1.12 (0.46-4.68) mIU/mL 01/19/17 01/19/17 01/19/17 Range/Units 15:00 11:38 07:50 WBC (4.5-11.0) 10^3/ul RBC (3.5-6.1) 10^6/uL Hgb (14.0-18.0) gm/dL Hct (42.0-52.0) % MCV (80.0-105.0) fL MCH (25.0-35.0) pg MCHC (31.0-37.0) g/dl RDW (11.5-14.5) % Plt Count (120.0-450.0) 10^3/uL MPV (7.0-11.0) fl Gran % (50.0-68.0) % Lymph % (Auto) (22.0-35.0) % [place] % (Auto) (1.0-6.0) % Eos % (Auto) (1.5-5.0) % Baso % (Auto) (0.0-3.0) % Gran # (1.4-6.5) Lymph # (1.2-3.4) [place] # (0.1-0.6) Eos # (0.0-0.7) Baso # (0.0-2.0) K/mm3 Sodium (132-148) mmol/L Potassium (3.6-5.0) mmol/L Chloride (98-107) mmol/L Carbon Dioxide (21-33) mmol/L Anion Gap (10-20) BUN (7-21) mg/dL Creatinine (0.5-1.4) mg/dL Est GFR ( Amer) Est GFR (Non-Af Amer) POC Glucose (mg/dL) 94 (65-110) mg/dL Random Glucose (70-110) mg/dL Calcium (8.4-10.5) mg/dL Phosphorus (2.5-4.5) mg/dL Magnesium (1.7-2.2) mg/dL Total Bilirubin (0.2-1.3) mg/dL AST (15-59) U/L ALT (7-56) U/L Alkaline Phosphatase (38-133) U/L Lactate Dehydrogenase 510 (333-699) U/L Total Creatine Kinase 97 (35-230) U/L Troponin I 0.02 ng/mL Total Protein (5.8-8.3) g/dL Albumin (3.0-4.8) g/dL Globulin gm/dL Albumin/Globulin Ratio (1.1-1.8) Triglycerides (35-160) mg/dL Cholesterol (130-200) mg/dL LDL Cholesterol Direct (0-129) mg/dL HDL Cholesterol (29-60) mg/dL Procalcitonin 0.28 (0.19-0.49) NG/ML TSH 3rd Generation (0.46-4.68) mIU/mL Laboratory Results - last 24 hr 01/19/17 01/19/17 01/19/17 07:50 11:38 15:00 WBC RBC Hgb Hct MCV MCH MCHC RDW Plt Count MPV Gran % Lymph % (Auto) [place] % (Auto) Eos % (Auto) Baso % (Auto) Gran # Lymph # [place] # Eos # Baso # Sodium Potassium Chloride Carbon Dioxide Anion Gap BUN Creatinine Est GFR ( Amer) Est GFR (Non-Af Amer) POC Glucose (mg/dL) 94 Random Glucose Calcium Phosphorus Magnesium Total Bilirubin AST ALT Alkaline Phosphatase Lactate Dehydrogenase 510 Total Creatine Kinase 97 Troponin I 0.02 Total Protein Albumin Globulin Albumin/Globulin Ratio Triglycerides Cholesterol LDL Cholesterol Direct HDL Cholesterol Procalcitonin 0.28 TSH 3rd Generation 01/19/17 01/20/17 01/20/17 22:01 06:00 07:23 WBC 9.6 D RBC 3.74 Hgb 10.8 L Hct 32.8 L MCV 87.7 MCH 28.9 MCHC 32.9 RDW 14.0 Plt Count 324 MPV 10.3 Gran % 70.6 H Lymph % (Auto) 13.6 L [place] % (Auto) 12.7 H Eos % (Auto) 2.8 Baso % (Auto) 0.3 Gran # 6.75 H Lymph # 1.3 [place] # 1.2 H Eos # 0.3 Baso # 0.03 Sodium 142 Potassium 3.4 L Chloride 102 Carbon Dioxide 30 Anion Gap 13 BUN 31 H Creatinine 2.5 H Est GFR ( Amer) 30 Est GFR (Non-Af Amer) 25 POC Glucose (mg/dL) 88 112 H Random Glucose 105 Calcium 8.6 Phosphorus 4.5 Magnesium 2.1 Total Bilirubin 0.6 AST 24 ALT 40 Alkaline Phosphatase 79 Lactate Dehydrogenase 473 Total Creatine Kinase 67 Troponin I 0.02 Total Protein 7.1 Albumin 3.7 Globulin 3.4 Albumin/Globulin Ratio 1.1 Triglycerides 206 H Cholesterol 170 LDL Cholesterol Direct 73 HDL Cholesterol 36 Procalcitonin TSH 3rd Generation 1.12 Fingerstick Blood Sugar Results: 112 Review of Systems - Constitutional Constitutional: absent: Fever, Chills - EENT Eyes: absent: Change in Vision - Cardiovascular Cardiovascular: absent: Chest Pain, Dyspnea - Respiratory Respiratory: Dyspnea (sig improved since admission). absent: Cough, Pain on Inspiration - Gastrointestinal Gastrointestinal: absent: Abdominal Pain, Nausea, Vomiting - Integumentary Integumentary: absent: New Lesions Critical Care Progress Note - Ventilator Checklist PUD Prophalyxis: Yes DVT Prophylaxis: Yes - Prophylaxis GI Prophylaxis GI: PPI - Prophylaxis DVT Prophylaxis DVT: Lovenox - Nutrition Nutrition: Nutrition Category Date Time Status Consistent Carbohydrate [DIET] Diets 01/19/17 Lunch Ordered Assessment/Plan - Assessment and Plan (Free Text) Assessment: 81 yo M w h/o sCHF, COPD, medical noncompliance admitted to ICU intubated due acute respiratory failure 2/2 AECHF, subsequently extubated Plan: Neuro: AAOx3, NAD Maintain normothermia Pulm: Tolerating NC BiPAP at night Maintain spo2>90, pao2>60 CV: CHF - afterload reduction with Lasix Maintain MAP >65 Cardio following Renal: CKD stage 4. No acute issues. Decrease Lasix dose (2850cc output in past 24 hours) Monitor renal function, I&Os Electrolytes repleted. AM labs GI: GI ppx Endo: Insulin Low SSI Maintain euglycemia 140-180 ID: Rocephin and Azithromycin for CAP Heme: Hb stable. No signs of overt bleeding DVT/GI ppx: SQL, protonix, DM/HHD Dispo: Transfer to telemetry - Date & Time Date: 01/20/17 Time: 10:00 <Deniz Calix - Last Filed: 01/20/17 15:30> CCU Objective - Vital Signs / Intake & Output Vital Signs (Last 4 hours): Vital Signs Temp Pulse Resp BP Pulse Ox 01/20/17 15:00 61 14 159/90 H 98 01/20/17 14:13 61 18 96 04/07/17 14:00 60 20 151/81 H 98 01/20/17 13:00 66 17 154/91 H 98 01/20/17 12:56 63 30 H 99 01/20/17 12:51 65 99 01/20/17 12:00 98.6 F 64 12 145/86 95 Intake and Output (Last 8hrs): Intake & Output 01/20/17 01/20/17 01/20/17 06:59 14:59 22:59 Intake Total 0 1130 Output Total 1200 Balance -1200 1130 Weight 165 lb Intake: IV 350 Right Antecubital 350 Oral 0 780 Output: Urine 1200 Urethral (Oneill) 1200 Other: Voiding Method Indwelling Catheter # Bowel Movements 0 - Medications Active Medications: Active Medications Generic Name Dose Route Start Last Admin Trade Name Freq PRN Reason Stop Dose Admin Enoxaparin Sodium 30 mg 01/20/17 10:00 01/20/17 09:43 Lovenox SC 30 mg DAILY FADY Administration Furosemide 30 mg 01/20/17 09:49 01/20/17 10:01 Lasix IVP 30 mg BID FADY Administration Azithromycin 250 mls @ 167 mls/hr 01/20/17 10:00 01/20/17 09:40 Zithromax 500mg In Ns IVPB 167 mls/hr DAILY FADY Administration Protocol Ceftriaxone Sodium 100 mls @ 100 mls/hr 01/19/17 10:00 01/20/17 09:40 Rocephin 1 Gram Ivpb IVPB 100 mls/hr DAILY FADY Administration Protocol Insulin Human Regular 0 units 01/19/17 07:30 01/20/17 11:49 Humulin R Low SC 1 units ACHS FADY Administration Protocol Metoprolol Tartrate 50 mg 01/19/17 10:00 01/20/17 09:41 Lopressor PO 50 mg BID FADY Administration Pantoprazole Sodium 40 mg 01/19/17 10:00 01/20/17 09:44 Protonix Inj IVP 40 mg DAILY FADY Administration Potassium Chloride 10 meq 01/21/17 08:00 Klor-Con 10 PO BRK FADY - Patient Studies Lab Studies: Microbiology Studies 01/19/17 06:20 MRSA Culture (Admit) - Final Nose MRSA NOT DETECTED 01/19/17 12:00 Urine Culture - Final Urine,Catheterized No Growth (<1,000 CFU/ML) Lab Studies 01/20/17 01/20/17 01/19/17 Range/Units 07:23 06:00 22:01 WBC 9.6 D (4.5-11.0) 10^3/ul RBC 3.74 (3.5-6.1) 10^6/uL Hgb 10.8 L (14.0-18.0) gm/dL Hct 32.8 L (42.0-52.0) % MCV 87.7 (80.0-105.0) fL MCH 28.9 (25.0-35.0) pg MCHC 32.9 (31.0-37.0) g/dl RDW 14.0 (11.5-14.5) % Plt Count 324 (120.0-450.0) 10^3/uL MPV 10.3 (7.0-11.0) fl Gran % 70.6 H (50.0-68.0) % Lymph % (Auto) 13.6 L (22.0-35.0) % [place] % (Auto) 12.7 H (1.0-6.0) % Eos % (Auto) 2.8 (1.5-5.0) % Baso % (Auto) 0.3 (0.0-3.0) % Gran # 6.75 H (1.4-6.5) Lymph # 1.3 (1.2-3.4) [place] # 1.2 H (0.1-0.6) Eos # 0.3 (0.0-0.7) Baso # 0.03 (0.0-2.0) K/mm3 Sodium 142 (132-148) mmol/L Potassium 3.4 L (3.6-5.0) mmol/L Chloride 102 (98-107) mmol/L Carbon Dioxide 30 (21-33) mmol/L Anion Gap 13 (10-20) BUN 31 H (7-21) mg/dL Creatinine 2.5 H (0.5-1.4) mg/dL Est GFR ( Amer) 30 Est GFR (Non-Af Amer) 25 POC Glucose (mg/dL) 112 H 88 (65-110) mg/dL Random Glucose 105 (70-110) mg/dL Hemoglobin A1c 7.8 H (4.2-6.5) % Calcium 8.6 (8.4-10.5) mg/dL Phosphorus 4.5 (2.5-4.5) mg/dL Magnesium 2.1 (1.7-2.2) mg/dL Total Bilirubin 0.6 (0.2-1.3) mg/dL AST 24 (15-59) U/L ALT 40 (7-56) U/L Alkaline Phosphatase 79 (38-133) U/L Lactate Dehydrogenase 473 (333-699) U/L Total Creatine Kinase 67 (35-230) U/L Troponin I 0.02 ng/mL Total Protein 7.1 (5.8-8.3) g/dL Albumin 3.7 (3.0-4.8) g/dL Globulin 3.4 gm/dL Albumin/Globulin Ratio 1.1 (1.1-1.8) Triglycerides 206 H (35-160) mg/dL Cholesterol 170 (130-200) mg/dL LDL Cholesterol Direct 73 (0-129) mg/dL HDL Cholesterol 36 (29-60) mg/dL TSH 3rd Generation 1.12 (0.46-4.68) mIU/mL 01/19/17 Range/Units 15:00 WBC (4.5-11.0) 10^3/ul RBC (3.5-6.1) 10^6/uL Hgb (14.0-18.0) gm/dL Hct (42.0-52.0) % MCV (80.0-105.0) fL MCH (25.0-35.0) pg MCHC (31.0-37.0) g/dl RDW (11.5-14.5) % Plt Count (120.0-450.0) 10^3/uL MPV (7.0-11.0) fl Gran % (50.0-68.0) % Lymph % (Auto) (22.0-35.0) % [place] % (Auto) (1.0-6.0) % Eos % (Auto) (1.5-5.0) % Baso % (Auto) (0.0-3.0) % Gran # (1.4-6.5) Lymph # (1.2-3.4) [place] # (0.1-0.6) Eos # (0.0-0.7) Baso # (0.0-2.0) K/mm3 Sodium (132-148) mmol/L Potassium (3.6-5.0) mmol/L Chloride (98-107) mmol/L Carbon Dioxide (21-33) mmol/L Anion Gap (10-20) BUN (7-21) mg/dL Creatinine (0.5-1.4) mg/dL Est GFR ( Amer) Est GFR (Non-Af Amer) POC Glucose (mg/dL) (65-110) mg/dL Random Glucose (70-110) mg/dL Hemoglobin A1c (4.2-6.5) % Calcium (8.4-10.5) mg/dL Phosphorus (2.5-4.5) mg/dL Magnesium (1.7-2.2) mg/dL Total Bilirubin (0.2-1.3) mg/dL AST (15-59) U/L ALT (7-56) U/L Alkaline Phosphatase (38-133) U/L Lactate Dehydrogenase (333-699) U/L Total Creatine Kinase (35-230) U/L Troponin I 0.02 ng/mL Total Protein (5.8-8.3) g/dL Albumin (3.0-4.8) g/dL Globulin gm/dL Albumin/Globulin Ratio (1.1-1.8) Triglycerides (35-160) mg/dL Cholesterol (130-200) mg/dL LDL Cholesterol Direct (0-129) mg/dL HDL Cholesterol (29-60) mg/dL TSH 3rd Generation (0.46-4.68) mIU/mL Laboratory Results - last 24 hr 01/19/17 01/19/17 01/20/17 15:00 22:01 06:00 WBC 9.6 D RBC 3.74 Hgb 10.8 L Hct 32.8 L MCV 87.7 MCH 28.9 MCHC 32.9 RDW 14.0 Plt Count 324 MPV 10.3 Gran % 70.6 H Lymph % (Auto) 13.6 L [place] % (Auto) 12.7 H Eos % (Auto) 2.8 Baso % (Auto) 0.3 Gran # 6.75 H Lymph # 1.3 [place] # 1.2 H Eos # 0.3 Baso # 0.03 Sodium 142 Potassium 3.4 L Chloride 102 Carbon Dioxide 30 Anion Gap 13 BUN 31 H Creatinine 2.5 H Est GFR ( Amer) 30 Est GFR (Non-Af Amer) 25 POC Glucose (mg/dL) 88 Random Glucose 105 Hemoglobin A1c 7.8 H Calcium 8.6 Phosphorus 4.5 Magnesium 2.1 Total Bilirubin 0.6 AST 24 ALT 40 Alkaline Phosphatase 79 Lactate Dehydrogenase 473 Total Creatine Kinase 67 Troponin I 0.02 0.02 Total Protein 7.1 Albumin 3.7 Globulin 3.4 Albumin/Globulin Ratio 1.1 Triglycerides 206 H Cholesterol 170 LDL Cholesterol Direct 73 HDL Cholesterol 36 TSH 3rd Generation 1.12 01/20/17 07:23 WBC RBC Hgb Hct MCV MCH MCHC RDW Plt Count MPV Gran % Lymph % (Auto) [place] % (Auto) Eos % (Auto) Baso % (Auto) Gran # Lymph # [place] # Eos # Baso # Sodium Potassium Chloride Carbon Dioxide Anion Gap BUN Creatinine Est GFR ( Amer) Est GFR (Non-Af Amer) POC Glucose (mg/dL) 112 H Random Glucose Hemoglobin A1c Calcium Phosphorus Magnesium Total Bilirubin AST ALT Alkaline Phosphatase Lactate Dehydrogenase Total Creatine Kinase Troponin I Total Protein Albumin Globulin Albumin/Globulin Ratio Triglycerides Cholesterol LDL Cholesterol Direct HDL Cholesterol TSH 3rd Generation Critical Care Progress Note - Nutrition Nutrition: Nutrition Category Date Time Status Consistent Carbohydrate [DIET] Diets 01/19/17 Lunch Ordered Addendum Addendum: 01/20/17 15:28 patient was seen, examined and discussed at bedside shoulder to shoulder at bedside with Dr. Gabriel. Her note reflects my exam, assessment and plan, except as below. Meds/Labs/ONE reviewed 81 yo male with CHF, cardiogenic pulmonary edema and respiratory failure, now resolved. patient was extubated yesterday and did well overnight. Would continue with diuresis and optimization of cardiac Rx. cardiology follow up appreciated. Ok to downgrade to tele ccm time 40 min
[2017-01-20] MEDS ORDERED: Enoxaparin 80 mg Syringe SC SCH (10:00)
--- NOTE | 2017-01-20 10:20 | PN ---
DATE: 01/20/2017 REASON FOR CONSULTATION AND FOLLOWUP: Cardiac evaluation, status post respiratory failure, possible acute exacerbation of COPD. Now the patient successfully extubated. BRIEF CLINICAL HISTORY: This is a 81-year-old male with past medical history significant for hyperte nsion, hyperlipidemia, pneumonia, diabetic nephropathy, came to the Emergency Room because of shortne ss of breath which got worse to the point the patient needed intubation. The patient intubated yeste rday, now successfully extubated, awake and alert, lying in the bed. Denies any chest pain, shortnes s of breath, any palpitation. PHYSICAL EXAMINATION: VITAL SIGNS: Temperature afebrile, heart rate 77, blood pressure 149/81. HEENT: PERRLA. Extraocular muscles intact. NECK: Supple. No carotid bruits. No thyromegaly. CHEST: Clear to auscultation. HEART: S1, S2 regular. ABDOMEN: Soft. EXTREMITIES: Clubbing and cyanosis negative. LABORATORY DATA: Blood workup as follows: WBC 9.6, hemoglobin 10.9, hematocrit 32.8, platelet count 324. Chemistry 142, potassium 3.4, chloride 102, carbon dioxide 30, anion gap of 13, BUN 31, creati nine 2.5, triglycerides 206. Cholesterol 170, LDL 73, HDL 36. Troponin 0.02. IMPRESSION: Status post respiratory failure. No evidence of acute coronary syndrome. Status post r espiratory failure, chronic obstructive pulmonary disease exacerbation, possible pneumonia, renal ins ufficiency, stage IV chronic kidney disease. The patient had a stress test 12/12/2016. At this vinny e showed abnormal myocardial study, fixed ____, no reversible ischemia, ejection fraction 39%. The p atient's prior stress test 2-1/2 years ago dated 03/2014 had fixed defect, minimal reversibility, no s ignificant change from before, ejection fraction 53%. Recent echo 12/09/2016 shows ejection fraction 45-50%, mild to moderate mitral regurgitation, mild tricuspid regurgitation, right ventricular systo lic pressure of 41. RECOMMENDATION: Continue to monitor renal function. No evidence of acute coronary syndrome, though patient has recurrent respiratory distress, possibly secondary to acute exacerbation of COPD as well as the fluid overload secondary to renal insufficiency. Since the patient has renal insufficiency, n o evidence of acute, we will not proceed for invasive workup because that will render kidney, the pat ient may end up in dialysis. We will try to manage medically for now. Avoid nephrotoxic medication. Continue Lasix as kidney function is tolerated. We change Lovenox DVT prophylaxis because no evide nce of [place]. Continue broad spectrum antibiotic. Ambulate. We will follow with you. Thank you, Dr. Kwan, for providing us the opportunity in taking care of the patient. Parker Drew MD cc: [id number] TT: 01/20/2017 10:19:39 Confirmation # [id number] Dictation # [id number] tn
[2017-01-20] MEDS ORDERED: Potassium Chloride 20 mEq ER Tab PO STA (11:31)
[2017-01-20] MEDS ORDERED: Albuterol-Ipratrop 3 mg / 0.5 (3 ml) UD IH PRN (20:29)
--- NOTE | 2017-01-20 21:02 | PN ---
DATE: 01/20/2017 REFERRING PHYSICIAN: Dr. Kwan. SUBJECTIVE: He is out of bed to reclining chair. is at bedside. Night was unremarkable. Tole rated BiPAP well. No headache, no rhinitis. Still has a mild cough and shortness of breath. No amanda sea, vomiting, diarrhea. No leg pain or leg swelling. OBJECTIVE: GENERAL: No acute distress. VITAL SIGNS: Temperature is 98, heart rate is 64, respiratory rate is 20, blood pressure 146/76, pul se ox 97% on nasal cannula. HEENT: Moist mucous membranes. Crowded airway. NECK: Supple. No JVD. LUNGS: Has prolonged expiratory phase with a few crackles. HEART: S1, S2. ABDOMEN: Soft, nontender. No organomegaly. EXTREMITIES: There is no edema. NEUROLOGIC: Awake, alert, follows simple commands. MEDICATIONS: He is on insulin coverage, potassium 10 mEq daily, Lasix 20 mg IV twice a day, metoprol ol tartrate 50 mg twice a day, Lovenox 30 mg subQ daily, Protonix 40 mg daily, Rocephin 1 g IV daily, Zithromax 500 mg daily. LABORATORY DATA: Shows hemoglobin 10.8, hematocrit 32.8, WBC 9.6, platelet is 324. INR is 0.94, PTT is 25. Sodium 142, potassium 3.4, chloride 102, bicarbonate 33, BUN 31, creatinine 2.5. Glucose is 112. Hemoglobin A1c 7.8. Calcium 8.6, phosphorus 4.5, magnesium 2.1, AST 24, ALT 40, alkaline phos phatase is 79. Troponin is 0.02, albumin 2.7. Triglycerides 206. TSH 1.12. MICROBIOLOGY: Blood culture and urine culture is unremarkable. IMPRESSION AND PLAN: Chronic obstructive lung disease, hypertension, resolved pulmonary infiltrate, sleep apnea syndrome, renal insufficiency, cardiomyopathy, noncompliant with the CPAP and followup. Continue to encourage BiPAP. Keep head elevated at 45 degrees. Decrease diuretics. 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 Follow up renal function. Add inhaled bronchodilator. Will follow with you. Parker Gomez MD cc: [id number] TT: 01/20/2017 21:01:18 Confirmation # [id number] Dictation # [id number] rn
--- NOTE | 2017-01-20 22:22 | PN ---
DATE: 01/20/2017 SUBJECTIVE: The patient seen and examined at bedside in the unit, feels better. No nausea, vomiting or diarrhea. No hematuria or hematochezia. No swelling of the leg. No chest pain. No palpitation. Shortness of breath is better. Out of bed on the recliner. Night was unremarkable. Tolerating BiPAP very well. PHYSICAL EXAMINATION: VITAL SIGNS: Temperature 98, heart rate 54, respiratory rate 20, blood pressure 146/76 and pulse oximetry is 97% on room air. HEENT: Head normocephalic and atraumatic. Eyes: PERRLA. Extraocular muscles intact. Conjunctivae pink. Eyelids unremarkable. Nose patent. NECK: Supple. No carotid bruit, JVD or thyromegaly. CHEST: Bilaterally symmetrical. HEART: S1, S2 positive. LUNGS: Have prolonged expiratory phase with few rhonchi. HEART: S1, S2 positive. ABDOMEN: Soft. Bowel sounds positive. No organomegaly. EXTREMITIES: No edema and no cyanosis. NEUROLOGIC: The patient is awake, alert and follows simple commands. MEDICATIONS: The patient got Lasix, metoprolol, Lovenox, Protonix, oxygen and Zithromax. LABORATORY DATA: Hemoglobin 10.8, hematocrit 32.8, white blood cells 39 and platelets 324. Sodium 142, potassium 3.4, BUN 31, creatinine 2.5 and hemoglobin A1c 7.8. AST 24. ALT 14. Troponin 0.02, triglyceride 206 and creatinine 1.12. Blood and urine cultures are negative. ASSESSMENT AND PLAN: The patient came with pulmonary edema, chronic obstructive lung disease and hypertension, pulmonary edema is resolving, sleep apnea syndrome, renal insufficiency, cardiomyopathy, diabetes mellitus, hypercholesterolemia, hypertriglyceridemia and noncompliant with CPAP. Continue encourage using BiPAP. Keep head elevated. Continue afterload reduction. and deep venous thrombosis prophylaxis. Follow up with renal function test. Dr. Gomez added inhaled bronchodilators. GI and deep venous thrombosis prophylaxis. Repeat labs. We will follow up. Court Kwan MD cc: [id number] TT: 01/20/2017 22:22:13 Confirmation # [id number] Dictation # [id number] GEOFF
[2017-01-21 06:05] LABS: ADD MANUAL DIFF? NO
[2017-01-21 06:21] LABS: BASO # 0.04 K/mm3 (0.0-2.0); BASO % 0.4 % (0.0-3.0); EOS # 0.4 (0.0-0.7); EOS % 3.6 % (1.5-5.0); GRAN # 7.26 (1.4-6.5); GRAN % 70.9 % (50.0-68.0); HEMATOCRIT 32.8 % (42.0-52.0); LYMPH # 1.5 (1.2-3.4); LYMPH % 14.8 % (22.0-35.0); MEAN CELL VOLUME 88.2 fL (80.0-105.0); MEAN CORPUSCULAR HEMOGLOBIN 28.8 pg (25.0-35.0); MEAN CORPUSCULAR HGB CONC 32.6 g/dl (31.0-37.0); MEAN PLATELET VOLUME 10.4 fl (7.0-11.0); MONO # 1.1 (0.1-0.6); MONO % 10.3 % (1.0-6.0); PLATELET COUNT 307 10^3/uL (120.0-450.0); RED CELL DISTRIBUTION WIDTH 13.7 % (11.5-14.5); WHITE BLOOD COUNT 10.2 10^3/ul (4.5-11.0)
[2017-01-21 06:26] LABS: BLOOD UREA NITROGEN 37 mg/dL (7-21); CALCIUM 8.7 mg/dL (8.4-10.5); CARBON DIOXIDE 30 mmol/L (21-33); CHLORIDE 102 mmol/L (98-107); GFR AFRICAN-AMERICAN 32; GLUCOSE,RANDOM 150 mg/dL (70-110); POTASSIUM 3.7 mmol/L (3.6-5.0); SODIUM 142 mmol/L (132-148)
[2017-01-21 06:43] LABS: TROPONIN I < 0.01 ng/mL
[2017-01-21] MEDS: Insulin Reg-LOW-Coverage SC SCH ×4 (08:05→21:56)
[2017-01-21] MEDS: cefTRIAXone 1 gm 100 ML IVPB SCH (09:47)
[2017-01-21] MEDS: Azithromycin 500MG/NS 250ml 250 ML IVPB SCH (09:48)
[2017-01-21] MEDS: Pantoprazole 40 mg EC Tab PO SCH (09:48)
[2017-01-21] MEDS: Potassium Chloride 10 mEq ER Tab PO SCH (09:48)
[2017-01-21] MEDS: Enoxaparin 30 mg Syringe SC SCH (09:49)
--- NOTE | 2017-01-21 12:03 | PN ---
DATE: 01/21/2017 REASON FOR CONSULTATION AND FOLLOWUP: Cardiac evaluation, status post respiratory failure, possible acute exacerbation of COPD. Now, the patient successfully extubated. BRIEF CLINICAL HISTORY: This is a 81-year-old male with past medical history significant for hyperte nsion, hyperlipidemia, pneumonia, diabetic nephropathy, came to the Emergency Room because of shortne ss of breath which got worse to the point the patient requiring intubation. Now, the patient success fully extubated, lying flat. Denies any chest pain, shortness of breath, any palpitation. PHYSICAL EXAMINATION: VITAL SIGNS: Temperature afebrile, heart rate 62, blood pressure 146/76. HEENT: PERRLA. Extraocular muscles intact. NECK: Supple. No carotid bruits. No thyromegaly. CHEST: Clear to auscultation. HEART: S1, S2 regular. ABDOMEN: Soft. EXTREMITIES: Clubbing and cyanosis negative. BLOOD WORKUP: As follows: WBC 10, hemoglobin 10, hematocrit 32.8, platelet count 307. Chemistry sh ows sodium 140, potassium 3.7, chloride ____, anion gap of 14, BUN 37, creatinine 2.4. IMPRESSION: Acute kidney injury on chronic renal insufficiency, chronic obstructive pulmonary diseas e exacerbation, possible pneumonia, respiratory failure, intubated, fluid overload, status post extub ated. No evidence of acute coronary syndrome. No evidence of acute myocardial infarction. The yolande ent had a stress test 12/12/2016, no reversible ischemia, ejection fraction 39%. The patient had a p rior stress test 2-1/2 years ago, also showed significant ejection fraction 53%. Recent echo 12/09/19 17 shows ejection 45-50%, mild to moderate mitral and mild tricuspid regurgitation, right ventricular systolic pressure of 41. RECOMMENDATION: Monitor renal function closely. Continue diuretics p.r.n., antibiotic. Monitor MUCKER COFFERDAM D. Avoid nephrotoxic medication. We will follow with you. Thank you, Dr. Kwan, for providing the opportunity in taking care of the patient. Parker Drew MD cc: [id number] TT: 01/21/2017 12:03:01 Confirmation # [id number] Dictation # [id number] tn
[2017-01-21 17:25] LABS: URINE BILIRUBIN NEGATIVE (NEGATIVE); URINE BLOOD LARGE (NEGATIVE); URINE GLUCOSE (UA) 100 mg/dL (NEGATIVE); URINE KETONE NEGATIVE (NEGATIVE); URINE LEUKOCYTE ESTERASE TRACE Leu/uL (NEGATIVE); URINE PROTEIN 100 mg/dL (<30 mg/dL); URINE UROBILINOGEN 0.2 E.U./dL (<1 E.U./dL)
[2017-01-21 17:35] LABS: URINE APPEARANCE SLIGHT-CLOUDY (CLEAR); URINE COLOR YELLOW (YELLOW)
[2017-01-21 17:41] LABS: URINE RBC 25 - 30 /hpf (0-2)
--- NOTE | 2017-01-21 18:44 | PN ---
DATE: 01/21/2017 REFERRING PHYSICIAN: Dr. Kwan. SUBJECTIVE: He is lying in the bed, nursing trying to get him out of bed to chair. Night was unrema rkable. Tolerated BiPAP well. Breathing is better, decreased cough, decreased shortness of breath. No nausea, no vomiting, no diarrhea. No leg pain or leg swelling. OBJECTIVE: GENERAL: No acute distress. VITAL SIGNS: Temperature is 98, heart rate 68, respiratory rate is 20, blood pressure 154/83, pulse ox 99% on nasal cannula. HEENT: Moist mucous membrane. Crowded airway. NECK: Supple. No JVD. LUNGS: Has a prolonged expiratory phase. HEART: S1 and S2. ABDOMEN: Soft, nontender. No organomegaly. EXTREMITIES: There is no edema. NEUROLOGIC: Awake, alert, follows simple command. MEDICATIONS: He is on albuterol/Atrovent nebulizer q. 6 hours p.r.n., insulin coverage, potassium 10 mEq daily, Lasix 30 mg IV twice a day, metoprolol tartrate 50 mg twice a day, Lovenox is 30 mg subQ daily, Protonix 40 mg , Rocephin 1 gram IV daily, Zithromax 500 mg daily. LABORATORY DATA: Shows hemoglobin 10.7, hematocrit 32.8, WBC 10.2, platelet count is 307. Sodium 14 2, potassium 3.7, chloride 102, bicarbonate 30, BUN 37, creatinine 2.4, glucose 164, calcium is 8.7, LDH is 415, total creatinine kinase 49. Troponin is 0.01. IMPRESSION AND PLAN: Chronic obstructive lung disease, hypertension resolved, pulmonary infiltrate, sleep apnea syndrome, renal insufficiency, cardiomyopathy, while in the hospital been compliant with CPAP/BiPAP. Continue bronchodilator after . Gastric prophylaxis. DVT prophylaxis. Out of bed to chair. Physical therapy. Discharge planning next day or so. We will follow with you. Parker Gomez MD cc: [id number] TT: 01/21/2017 18:43:48 Confirmation # [id number] Dictation # [id number] mn
--- NOTE | 2017-01-21 21:28 | PN ---
DATE: 01/21/2017 SUBJECTIVE: The patient was seen and examined on the bedside. was sitting on the bedside also. No nausea, vomiting, or diarrhea. No hematuria or hematochezia. Shortness of breath is getting be tter. Swelling of the leg is getting better. No fever, no chills. Tolerated BiPAP very well. PHYSICAL EXAMINATION: VITAL SIGNS: Temperature 98, heart rate 68, respiratory rate 20, blood pressure 154/83, pulse oximet er 99% on room air. HEENT: Head normocephalic, atraumatic. Eyes, PERRLA. Extraocular muscles intact. Conjunctivae pink . Eyelids unremarkable. Nose patent. Mucous membranes moist. NECK: Supple. No carotid bruit, JVD or thyromegaly. CHEST: Bilaterally symmetrical. HEART: S1, S2 positive. LUNGS: Clear to auscultation. ABDOMEN: Soft. Bowel sounds present. No organomegaly. EXTREMITIES: No edema, no cyanosis. NEUROLOGIC: The patient is awake, alert, follows simple commands. MEDICATIONS: Albuterol/Atrovent, insulin coverage, Lasix, metoprolol, Lovenox, Protonix, Rocephin, Z ithromax. LABORATORY DATA: Hemoglobin 10.7, hematocrit 32.8, white blood cells 10.2, platelets 307. Sodium 14 2, potassium 3.7, BUN 37, creatinine 2.4, calcium 8.7. Troponin is 0.01. ASSESSMENT AND PLAN: The patient is a 81-year-old male with chronic obstructive lung disease, hypert ension, resolving pulmonary edema, pulmonary infiltrates, sleep apnea syndrome, renal insufficiency. Consult called with the emergency department aide, Dr. Ronnie Hatch. Cardiomyopathy. In the hospital, patient is compliant with the CPAP/BiPAP. Continue bronchodilators. Continue gastric prophylaxis, deep venous thrombosis prophylaxis. Physical therapy, out of bed. We will try to do TCU for this patient for d econditioning. Bladder ultrasound was done. Renal ultrasound done. Results are pending. Gastroint estinal and deep venous thrombosis prophylaxis. Repeat labs. We will follow up. Court Kwan MD cc: [id number] TT: 01/21/2017 21:27:40 Confirmation # [id number] Dictation # [id number] rn
--- NOTE | 2017-01-21 23:13 | CP.PCM.CON ---
History of Present Illness - History of Present Illness History of Present Illness: 81 yo M w/ pmh of htn, dm, CAD, CHF w/ systolic dysfunction, sleep apnea ( supposed to be on BIPAP) presented to ED 2 days ago with progressive shortness of breath that started on day of presentation; Patient reports being in his usual state of health the night before presentation without any shortness of breath or chest pain; he denies any paroxysmal nocturnal dyspnea despite using 3 pillows to sleep (which he says he does so for comfort only); denies any leg swelling and reports being compliant with his meds; In ED patient was intubated for respiratory distress; extubated the same day. Review of Systems - Constitutional Constitutional: absent: Anorexia, Weight Gain, Weight Loss - EENT Eyes: absent: Blurred Vision, Change in Vision Ears: absent: Decreased Hearing, Dizziness Nose/Mouth/Throat: absent: Nasal Discharge, Sore Throat - Cardiovascular Cardiovascular: As Per HPI. absent: Dyspnea on Exertion, Edema, Leg Edema, Paroxysmal Nocturnal Dyspnea - Respiratory Respiratory: Cough. absent: Dyspnea on Exertion - Gastrointestinal Gastrointestinal: absent: Abdominal Pain, Constipation, Diarrhea, Hematochezia, Nausea, Vomiting - Genitourinary Genitourinary: absent: Change in Urinary Stream, Difficulty Urinating, Dysuria, Hematuria - Musculoskeletal Musculoskeletal: absent: Arthralgias, Back Pain - Integumentary Integumentary: absent: Pruritus, Rash - Neurological Neurological: absent: Dizziness, Sensory Deficit, Other Visual Disturbances - Psychiatric Psychiatric: absent: Anxiety, Depression - Hematologic/Lymphatic Hematologic: absent: Easy Bleeding, Easy Bruising Past Patient History - Infectious Disease Hx of Infectious Diseases: None - Tetanus Immunizations Tetanus Immunization: Unknown - Past Medical History & Family History Pertinent Family History: Mother - DM Father - heart disease - Past Social History Smoking Status: Never Smoked - CARDIAC Hx Cardiac Disorders: Yes Hx Congestive Heart Failure: Yes Hx Hypertension: Yes - PULMONARY Hx Respiratory Disorders: Yes Hx Pneumonia: Yes (HAD DOUBLE PNEUMONIA H/O) - NEUROLOGICAL Hx Neurological Disorder: Yes (NEUROPATHY) - HEENT Hx HEENT Problems: Yes Hx Cataracts: Yes (BILATERAL SX WITH LENS IMPLANT) - RENAL Hx Chronic Kidney Disease: No - ENDOCRINE/METABOLIC Hx Endocrine Disorders: Yes Hx Diabetes Mellitus Type 2: Yes - HEMATOLOGICAL/ONCOLOGICAL Hx Blood Disorders: No - INTEGUMENTARY Hx Dermatological Problems: No - MUSCULOSKELETAL/RHEUMATOLOGICAL Hx Falls: No - GASTROINTESTINAL Hx Gastrointestinal Disorders: No - GENITOURINARY/GYNECOLOGICAL Hx Genitourinary Disorders: No - PSYCHIATRIC Hx Psychophysiologic Disorder: Yes (BEER DRINKER H/O) Hx Depression: No Hx Emotional Abuse: No Hx Physical Abuse: No Hx Substance Use: No - SURGICAL HISTORY Hx Surgeries: Yes (BILATERAL CATARACT SX H/O) - ANESTHESIA Hx Anesthesia: No Hx Anesthesia Reactions: No Hx Malignant Hyperthermia: No Meds Allergies/Adverse Reactions: Allergies Allergy/AdvReac Type Severity Reaction Status Date / Time No Known Allergies Allergy Verified 12/08/16 15:02 - Medications Medications: Current Medications Albuterol/Ipratropium (Duoneb 3 Mg/0.5 Mg (3 Ml) Ud) 3 ml IH [id number] PRN PRN Reason: Shortness of Breath Enoxaparin Sodium (Lovenox) 30 mg SC DAILY [facility] Last Admin: 01/21/17 09:49 Dose: 30 mg Furosemide (Lasix) 30 mg IVP BID [facility] Last Admin: 01/21/17 18:22 Dose: 30 mg Azithromycin (Zithromax 500mg In Ns) 250 mls @ 167 mls/hr IVPB DAILY [facility] PRN Reason: Protocol Last Admin: 01/21/17 09:48 Dose: 167 mls/hr Ceftriaxone Sodium (Rocephin 1 Gram Ivpb) 100 mls @ 100 mls/hr IVPB DAILY [facility] PRN Reason: Protocol Last Admin: 01/21/17 09:47 Dose: 100 mls/hr Insulin Human Regular (Humulin R Low) 0 units SC ACHS [facility] PRN Reason: Protocol Last Admin: 01/21/17 21:56 Dose: Not Given Metoprolol Tartrate (Lopressor) 50 mg PO BID [facility] Last Admin: 01/21/17 18:22 Dose: 50 mg Pantoprazole Sodium (Protonix Ec Tab) 40 mg PO ACB [facility] Last Admin: 01/21/17 09:48 Dose: 40 mg Potassium Chloride (Klor-Con 10) 10 meq PO BRK [facility] Last Admin: 01/21/17 09:48 Dose: 10 meq Physical Exam - Constitutional Appears: Well, Non-toxic, No Acute Distress - Head Exam Head Exam: NORMAL INSPECTION - Eye Exam Eye Exam: Normal appearance. absent: Scleral icterus Pupil Exam: absent: Unequal - ENT Exam ENT Exam: Mucous Membranes Moist - Neck Exam Neck exam: Negative for: Lymphadenopathy, Normal Inspection - Respiratory Exam Respiratory Exam: Clear to Auscultation Bilateral, NORMAL BREATHING PATTERN. absent: Rales, Rhonchi, Wheezes - Cardiovascular Exam Cardiovascular Exam: RRR. absent: Diastolic murmur, JVD, Systolic Murmur Additional comments: No abdominal, femoral or carotid bruits - GI/Abdominal Exam GI & Abdominal Exam: Soft. absent: Bruit, Distended, Tenderness - Exam Exam: absent: Bladder Distension - Extremities Exam Extremities exam: Positive for: pedal pulses present Additional comments: No leg edema - Neurological Exam Neurological exam: Alert Additional comments: 5/5 motor strength in bilateral UE and LE - Psychiatric Exam Psychiatric exam: Normal Affect, Normal Mood - Skin Skin Exam: Normal Color, Warm Results - Vital Signs Recent Vital Signs: Last Vital Signs Temp 98.3 F 01/21/17 16:00 Pulse 64 01/21/17 18:22 Resp 18 01/21/17 18:00 BP 159/94 H 01/21/17 18:22 Pulse Ox 97 01/21/17 18:00 - Labs Result Diagrams: 01/21/17 05:30 01/21/17 05:30 Labs: Laboratory Results - last 24 hr 01/20/17 01/20/17 01/20/17 11:39 16:14 23:28 WBC RBC Hgb Hct MCV MCH MCHC RDW Plt Count MPV Gran % Lymph % (Auto) [place] % (Auto) Eos % (Auto) Baso % (Auto) Gran # Lymph # [place] # Eos # Baso # Sodium Potassium Chloride Carbon Dioxide Anion Gap BUN Creatinine Est GFR ( Amer) Est GFR (Non-Af Amer) POC Glucose (mg/dL) 189 H 135 H 158 H Random Glucose Calcium Lactate Dehydrogenase Total Creatine Kinase Troponin I Urine Color Urine Appearance Urine pH Ur Specific [place] Urine Protein Urine Glucose (UA) Urine Ketones Urine Blood Urine Nitrate Urine Bilirubin Urine Urobilinogen Ur Leukocyte Esterase Urine RBC Urine WBC Ur Epithelial Cells 01/21/17 01/21/17 01/21/17 05:30 07:12 11:09 WBC 10.2 RBC 3.72 Hgb 10.7 L Hct 32.8 L MCV 88.2 MCH 28.8 MCHC 32.6 RDW 13.7 Plt Count 307 MPV 10.4 Gran % 70.9 H Lymph % (Auto) 14.8 L [place] % (Auto) 10.3 H Eos % (Auto) 3.6 Baso % (Auto) 0.4 Gran # 7.26 H Lymph # 1.5 [place] # 1.1 H Eos # 0.4 Baso # 0.04 Sodium 142 Potassium 3.7 Chloride 102 Carbon Dioxide 30 Anion Gap 14 BUN 37 H Creatinine 2.4 H Est GFR ( Amer) 32 Est GFR (Non-Af Amer) 26 POC Glucose (mg/dL) 154 H 267 H Random Glucose 150 H Calcium 8.7 Lactate Dehydrogenase 415 Total Creatine Kinase 49 Troponin I < 0.01 D Urine Color Urine Appearance Urine pH Ur Specific [place] Urine Protein Urine Glucose (UA) Urine Ketones Urine Blood Urine Nitrate Urine Bilirubin Urine Urobilinogen Ur Leukocyte Esterase Urine RBC Urine WBC Ur Epithelial Cells 01/21/17 01/21/17 16:17 17:00 WBC RBC Hgb Hct MCV MCH MCHC RDW Plt Count MPV Gran % Lymph % (Auto) [place] % (Auto) Eos % (Auto) Baso % (Auto) Gran # Lymph # [place] # Eos # Baso # Sodium Potassium Chloride Carbon Dioxide Anion Gap BUN Creatinine Est GFR ( Amer) Est GFR (Non-Af Amer) POC Glucose (mg/dL) 164 H Random Glucose Calcium Lactate Dehydrogenase Total Creatine Kinase Troponin I Urine Color Yellow Urine Appearance Slight-cloudy Urine pH 6.0 Ur Specific [place] 1.025 Urine Protein 100 H Urine Glucose (UA) 100 H Urine Ketones Negative Urine Blood Large H Urine Nitrate Negative Urine Bilirubin Negative Urine Urobilinogen 0.2 Ur Leukocyte Esterase Trace H Urine RBC 25 - 30 Urine WBC 2 - 5 Ur Epithelial Cells 1 - 3 - Imaging and Cardiology US - abdomen Status: Image reviewed by me Additional comment: Repeat renal US showing relatively preserved echogenicity and thickness of cortices; no hydronephrosis; large exophytic cyst noted on L kidney; Assessment & Plan (1) CHF exacerbation Assessment and Plan: With systolic dysfunction as well as likely diastolic dysfunction; tenuous volume status indicated by clinical presentation of relatively sudden onset of dyspnea, exacerbated by advanced renal insufficiency; -Agree with IV lasix 30 mg bid; -Should consider changing B-rodney to coreg for more effective BP control and established efficacy in systolic dysfunction -Start small dose of ARB for both cardiac optimization and mel-protective effect; titrate upward as tolerated; will initiate losartan 25 mg daily; Status: Acute (2) CKD (chronic kidney disease) stage 4, GFR 15-29 ml/min Assessment and Plan: Proteinuric kidney disease, progressive decline in GFR with serum creat ~1.4 about 3 years ago, now at 2.4; repeat renal US showing relatively preserved echogenicity and renal cortical thickness; diabetic nephropathy most likely etiology but needs further workup to look for other possible causes; cannot rule out superimposed cardiorenal and renovascular component given relatively abrupt CHF presentation for which the mainstay of treatment is aggressive medical management with BP control and anti-platelet med/statins; Stable electrolyte and volume status currently; however, will decreasing GFR, will likely need to be on twice daily diuretic regimen at home given CHF status; -awaiting official renal US read -UA, random urine protein and creatinine -C3, C4, hep B and C serologies -SPEP, serum free light chains -renal artery duplex Status: Acute (3) HTN (hypertension) Assessment and Plan: Uncontrolled, change metoprolol to coreg 12.5 mg bid, add losartan 25 mg daily; Status: Acute (4) Diabetes Assessment and Plan: A1C 7.8, on PO meds only; unclear benefit of more stringent control in elderly patient; need to monitor for hypoglycemic events as renal function progressively worsens; Status: Chronic (5) CAD (coronary artery disease) Assessment and Plan: With recent stress test showing fixed defect; has risk factors for renovascular disease as well; needs to be on high potency statin as outpatient; Status: Acute (6) Chronic kidney disease-mineral and bone disorder Assessment and Plan: Need to monitor phos, vit D 25-OH and PTH levels, can be done as outpatient; Status: Acute (7) Anemia Assessment and Plan: Check iron studies; can be secondary to CKD; Status: Acute
[2017-01-22 06:36] LABS: ADD MANUAL DIFF? NO
[2017-01-22 06:58] LABS: ALB/GLOB RATIO 1.1 (1.1-1.8); ALKALINE PHOSPHATASE 88 U/L (38-133); ALT/SGPT 29 U/L (7-56); AST/SGOT 22 U/L (15-59); BILIRUBIN,TOTAL 0.6 mg/dL (0.2-1.3); BLOOD UREA NITROGEN 37 mg/dL (7-21); CALCIUM 8.8 mg/dL (8.4-10.5); CARBON DIOXIDE 30 mmol/L (21-33); CHLORIDE 102 mmol/L (98-107); GFR AFRICAN-AMERICAN 32; GLUCOSE,RANDOM 174 mg/dL (70-110); MAGNESIUM 2.2 mg/dL (1.7-2.2); PHOSPHOROUS 3.9 mg/dL (2.5-4.5); POTASSIUM 3.6 mmol/L (3.6-5.0); SODIUM 142 mmol/L (132-148); TOTAL PROTEIN 7.7 g/dL (5.8-8.3)
[2017-01-22 07:18] LABS: BASO # 0.03 K/mm3 (0.0-2.0); BASO % 0.3 % (0.0-3.0); EOS # 0.3 (0.0-0.7); EOS % 2.6 % (1.5-5.0); GRAN # 7.89 (1.4-6.5); GRAN % 76.6 % (50.0-68.0); HEMATOCRIT 32.9 % (42.0-52.0); LYMPH # 1.3 (1.2-3.4); LYMPH % 12.5 % (22.0-35.0); MEAN CELL VOLUME 87.7 fL (80.0-105.0); MEAN CORPUSCULAR HEMOGLOBIN 28.3 pg (25.0-35.0); MEAN CORPUSCULAR HGB CONC 32.2 g/dl (31.0-37.0); MEAN PLATELET VOLUME 10.6 fl (7.0-11.0); MONO # 0.8 (0.1-0.6); PLATELET COUNT 332 10^3/uL (120.0-450.0); RED CELL DISTRIBUTION WIDTH 13.5 % (11.5-14.5); WHITE BLOOD COUNT 10.3 10^3/ul (4.5-11.0)
[2017-01-22] MEDS: Insulin Reg-LOW-Coverage SC SCH ×4 (08:41→22:19)
[2017-01-22] MEDS: Pantoprazole 40 mg EC Tab PO SCH (08:41)
[2017-01-22] MEDS: Potassium Chloride 10 mEq ER Tab PO SCH (08:41)
[2017-01-22] MEDS: Enoxaparin 30 mg Syringe SC SCH (09:12)
[2017-01-22] MEDS: Azithromycin 500MG/NS 250ml 250 ML IVPB SCH (09:13)
[2017-01-22] MEDS: cefTRIAXone 1 gm 100 ML IVPB SCH (09:13)
--- NOTE | 2017-01-22 12:55 | PN ---
DATE: 01/22/2017 REASON FOR CONSULTATION AND FOLLOWUP: Cardiac evaluation, status post respiratory failure, possible acute exacerbation of COPD, now has been successfully extubated. BRIEF CLINICAL HISTORY: This is a 81-year-old male with a past medical history significant for hyper tension, hyperlipidemia, pneumonia, diabetic nephropathy. Came to the Emergency Room because of the shortness of breath, which got worse to the point that patient requiring intubation. Now, patient ace ccessfully extubated. Lying flat on the bed. Denies any chest pain, shortness of breath, any palpit ation. PHYSICAL EXAMINATION: VITAL SIGNS: Temperature afebrile, heart rate 64, blood pressure 151/84. HEENT: PERRLA. Extraocular muscles intact. NECK: Supple. No carotid bruits. No thyromegaly. CHEST: Clear to auscultation. HEART: S1, S2 regular. ABDOMEN: Soft. EXTREMITIES: Clubbing, cyanosis negative. BLOOD WORKUP: WBC 10.3, hemoglobin 10.3, hematocrit 32.9, platelet count 332. Chemistry shows sodiu m 140, potassium 3. , chloride 102, carbon dioxide 30, anion gap of 14, BUN 37, creatinine 2.4. IMPRESSION: Chronic renal insufficiency with creatinine clearance 23, stage III-IV chronic kidney di sease, chronic obstructive pulmonary disease exacerbation, status post intubated, status post success fully extubated, pneumonia, respiratory failure, intubated, extubated, no evidence of acute coronary syndrome, no evidence of acute myocardial infarction. The patient had a stress test 12/12/2016, no re versible ischemia, ejection fraction 39%, cardiomyopathy. The patient had a prior stress 2-1/2 years ago that showed ejection fraction 53%, no change in perfusion pattern. Recent echo 12/09/2016, eject ion fraction 45%-50%, mild to moderate mitral regurgitation, mild tricuspid regurgitation, right vent ricular systolic pressure 41. RECOMMENDATION: Monitor renal function closely. Avoid nephrotoxic medication. Follow up nephrology . Monitor BUN and creatinine. Avoid nephrotoxic medication. Exacerbation of chronic obstructive pu lmonary disease. Will follow with you. Continue metoprolol 50 mg twice a day. Continue deep venous thrombosis prophylaxis with renal adjusted dose 30 mg subQ daily. We will follow with you. Thank you, Dr. Kwan, for providing us the opportunity in taking care of the patient. We will follo w with you. Parker Drew MD cc: [id number] TT: 01/22/2017 12:54:47 Confirmation # [id number] Dictation # [id number]
--- NOTE | 2017-01-22 15:29 | US ---
PROCEDURE: Bladder ultrasound HISTORY: Renal insufficiency, check post-void residual COMPARISON: TECHNIQUE: FINDINGS: A Oneill catheter seen within the bladder . There is no residual fluid IMPRESSION: Oneill catheter in bladder with no residual fluid
--- NOTE | 2017-01-22 15:30 | US ---
PROCEDURE: Ultrasound of the Kidneys HISTORY: worsening renal function, check post-void residual COMPARISON: None available. TECHNIQUE: Sonogram of the kidneys. FINDINGS: RIGHT KIDNEY: Measures: 11.3 x 5.7 x 5.1 cm. Normal in size, contour and echogenicity. No stone, solid mass lesion or hydronephrosis visualized. LEFT KIDNEY: Measures: 11.6 x 4.9 x 5.7 cm. Normal in size, contour and echogenicity. No stone, solid mass lesion or hydronephrosis visualized. There is a cyst measuring 4.89 x 3.79 x 4.62 cm OTHER FINDINGS: None. IMPRESSION: Left renal cyst
--- NOTE | 2017-01-22 17:44 | PN ---
DATE: 01/22/2017 REFERRING PHYSICIAN: Dr. Kwan. SUBJECTIVE: He is out of bed to chair, sleepy, arousable. Night was unremarkable. Tolerated BiPAP well. No headache, no rhinitis. Cough is better. Shortness of breath is improved. No nausea, no v omiting, diarrhea. No leg pain or leg swelling. OBJECTIVE: GENERAL: No acute distress. VITAL SIGNS: Temp is 98, heart rate is 58, respiratory rate is 18, blood pressure 161/95, pulse ox 9 6% on nasal cannula. HEENT: Moist mucous membrane. Crowded airway. NECK: Supple. No JVD. LUNGS: Has a fair airflow with few rhonchi. HEART: S1, S2. ABDOMEN: Soft, nontender. No organomegaly. EXTREMITIES: No edema. NEUROLOGIC: Awake, alert, follows simple commands. MEDICATIONS: He is on Cozaar 25 mg daily, DuoNeb q. 6 hours, insulin coverage, potassium 10 mEq onelia y, Lasix 30 mg IV twice a day, metoprolol tartrate 50 mg twice a day, Lovenox 30 mg daily, Protonix 4 0 mg daily, Rocephin 1 gram daily, Zithromax 500 mg daily. LABORATORY DATA: Shows hemoglobin 10.6, hematocrit 32.9, WBC 10.3, platelet count is 332. Sodium 14 2, potassium 3.6, chloride 102, bicarbonate 30, BUN 37, creatinine 2.4, glucose 174, phosphorus 3.9, magnesium 2.2. AST 22, ALT 29, alk phos is 80, albumin is 4.0. IMPRESSION AND PLAN: Chronic obstructive lung disease, hypertension, resolved pulmonary infiltrate, sleep apnea syndrome, renal insufficiency, cardiomyopathy. Pulmonary point of view, doing okay. Con tinue to encourage BiPAP, bronchodilator, keep head elevated at 45 degrees. Gastric prophylaxis. De ep venous thrombosis prophylaxis. Need outpatient repeat sleep study to qualify him for CPAP/BiPAP. Follow up labs in the morning. We will follow with you. Parker Gomez MD cc: [id number] TT: 01/22/2017 17:43:49 Confirmation # [id number] Dictation # [id number] rn
--- NOTE | 2017-01-22 19:42 | PN ---
DATE: 01/22/2017 SUBJECTIVE: The patient was seen and examined, sitting on the chair, feeling better. Night was unremarkable. Tolerated BiPAP very well. No headache, no rhinitis. No coughing and shortness of breath. Swelling of the leg is gone. No vomiting, no diarrhea. PHYSICAL EXAMINATION: VITAL SIGNS: Temperature 98, heart rate 58, respiratory rate 18 , blood pressure 151/95, pulse oximetry 92% on nasal cannula. HEENT: Head normocephalic, atraumatic. Eyes: PERRLA. Extraocular muscles intact. Conjunctivae pink. Eyelids unremarkable. Nose patent. NECK: Supple. No carotid bruit, JVD or thyromegaly. CHEST: Bilaterally symmetrical. HEART: S1, S2 positive. LUNGS: Clear to auscultation. ABDOMEN: Soft. Bowel sounds present. No organomegaly. EXTREMITIES: No edema, no cyanosis. NEUROLOGIC: The patient is awake, alert, follows simple commands. MEDICATIONS: Cozaar, DuoNeb, potassium, Lasix, metoprolol, Lovenox, Protonix, Rocephin, Zithromax. LABORATORY DATA: Hemoglobin 10.6, hematocrit 32.9, white blood cell noted , platelets 332. Sodium 142, potassium 3.6, BUN 37, creatinine is 2.4, magnesium 2.2. AST 22, ALT 29. ASSESSMENT AND PLAN: The patient is a 81-year-old male who came with pulmonary edema, congestive heart failure, chronic obstructive lung disease, hypertension , pulmonary edema is resolving, sleep apnea syndrome, renal insufficiency, tile erector is on the case; cardiomyopathy. Continue to encourage BiPAP, needs rehabilitation. Trying take the patient to TCU for physical therapy. Deep vein thrombosis prophylaxis. According to Dr. Gomez, the patient needs a sleep study to qualify him for a CPAP or BiPAP. A renal ultrasound was done yesterday and according to that left renal cyst. Bladder ultrasound was done and according to that Oneill catheter is in the bladder with a no residual fluid , seen by Dr. Drew and Dr. Ronnie Hatch. The patient has a history of coronary artery disease, anemia, getting better; chronic kidney disease, mineral and bone disorder, need to monitor phosphorus and vitamin D, PTH level, which can be done as outpatient as per Dr. Hatch; diabetes, hemoglobin A1c 7.8. He is on p.o. medication. Need to monitor for hypoglycemic event as renal function progressively worsening; chronic kidney disease stage IV. Dr. Hatch order C3- C4, serologies, SPEP serum for light chains, renal artery duplex. Will discontinue Oneill catheter and we will followup. Court Kwan MD cc: [id number] TT: 01/22/2017 19:41:47 Confirmation # [id number] Dictation # [id number] MTDD
--- NOTE | 2017-01-22 22:15 | CP.PCM.PN ---
Subjective - Date & Time of Evaluation Date of Evaluation: 01/22/17 Time of Evaluation: 10:30 - Subjective Subjective: Breathing improved; awaiting transfer to telemetry; Objective - Vital Signs/Intake and Output Vital Signs (last 24 hours): Temp Pulse Resp BP Pulse Ox 98.5 F 63 19 149/83 96 01/22/17 20:30 01/22/17 20:30 01/22/17 20:30 01/22/17 20:30 01/22/17 20:30 Intake and Output: 01/22/17 01/23/17 18:59 06:59 Intake Total 850 Output Total 900 Balance -50 - Medications Medications: Current Medications Albuterol/Ipratropium (Duoneb 3 Mg/0.5 Mg (3 Ml) Ud) 3 ml IH [id number] PRN PRN Reason: Shortness of Breath Enoxaparin Sodium (Lovenox) 30 mg SC DAILY FOR[facility]LY [facility], [facility]1983 Last Admin: 01/22/17 09:12 Dose: 30 mg Furosemide (Lasix) 30 mg IVP BID [facility], [facility]1983 Last Admin: 01/22/17 17:28 Dose: 30 mg Azithromycin (Zithromax 500mg In Ns) 250 mls @ 167 mls/hr IVPB DAILY FADY PRN Reason: Protocol Last Admin: 01/22/17 09:13 Dose: 167 mls/hr Ceftriaxone Sodium (Rocephin 1 Gram Ivpb) 100 mls @ 100 mls/hr IVPB DAILY FADY PRN Reason: Protocol Last Admin: 01/22/17 09:13 Dose: 100 mls/hr Insulin Human Regular (Humulin R Low) 0 units SC ACHS FADY PRN Reason: Protocol Last Admin: 01/22/17 17:22 Dose: 2 units Losartan Potassium (Cozaar) 25 mg PO DAILY [facility], [facility] Last Admin: 01/22/17 09:12 Dose: 25 mg Metoprolol Tartrate (Lopressor) 50 mg PO BID [facility], [facility] Last Admin: 01/22/17 17:27 Dose: 50 mg Pantoprazole Sodium (Protonix Ec Tab) 40 mg PO ACB [facility], [facility] Last Admin: 01/22/17 08:41 Dose: 40 mg Potassium Chloride (Klor-Con 10) 10 meq PO BRK [facility], [facility] Last Admin: 01/22/17 08:41 Dose: 10 meq - Labs Labs: 01/22/17 06:00 01/22/17 06:00 PT 10.2 Seconds (9.9-11.8) 01/19/17 02:21 INR 0.94 (0.93-1.08) 01/19/17 02:21 APTT 25.4 Seconds (23.7-30.8) 01/19/17 02:21 - Constitutional Appears: Well, No Acute Distress - Head Exam Head Exam: NORMAL INSPECTION - Eye Exam Eye Exam: Normal appearance - ENT Exam ENT Exam: Mucous Membranes Moist - Neck Exam Neck Exam: Normal Inspection - Respiratory Exam Respiratory Exam: Clear to Ausculation Bilateral, NORMAL BREATHING PATTERN - Cardiovascular Exam Cardiovascular Exam: REGULAR RHYTHM, +S1, +S2 - GI/Abdominal Exam GI & Abdominal Exam: Soft. absent: Distended, Tenderness - Exam Exam: absent: Bladder Distension - Extremities Exam Additional comments: no leg edema - Neurological Exam Neurological Exam: Alert, Awake - Psychiatric Exam Psychiatric exam: Normal Affect, Normal Mood - Skin Skin Exam: Normal Color, Warm Assessment and Plan (1) CHF exacerbation Assessment & Plan: Improved; likely with tenuous volume status and needs to be on regular diuretics , especially with renal insufficiency; continue IV lasix 30 mg bid; Status: Acute (2) CKD (chronic kidney disease) stage 4, GFR 15-29 ml/min Assessment & Plan: Proteinuric kidney disease; workup sent; renal artery duplex also ordered; Status: Chronic (3) HTN (hypertension) Assessment & Plan: Uncontrolled, losartan started, can titrate upward as tolerated; Status: Acute (4) Chronic kidney disease-mineral and bone disorder Assessment & Plan: phos at goal, monitor; Status: Acute (5) Anemia Assessment & Plan: check iron studies; Status: Acute
[2017-01-23 07:27] LABS: ADD MANUAL DIFF? NO
[2017-01-23 07:36] LABS: BASO # 0.02 K/mm3 (0.0-2.0); BASO % 0.2 % (0.0-3.0); EOS # 0.3 (0.0-0.7); EOS % 2.4 % (1.5-5.0); GRAN # 7.83 (1.4-6.5); GRAN % 74.8 % (50.0-68.0); HEMATOCRIT 32.6 % (42.0-52.0); LYMPH # 1.6 (1.2-3.4); LYMPH % 14.9 % (22.0-35.0); MEAN CELL VOLUME 87.2 fL (80.0-105.0); MEAN CORPUSCULAR HEMOGLOBIN 28.1 pg (25.0-35.0); MEAN CORPUSCULAR HGB CONC 32.2 g/dl (31.0-37.0); MEAN PLATELET VOLUME 10.4 fl (7.0-11.0); MONO # 0.8 (0.1-0.6); MONO % 7.7 % (1.0-6.0); PLATELET COUNT 329 10^3/uL (120.0-450.0); RED CELL DISTRIBUTION WIDTH 13.4 % (11.5-14.5); WHITE BLOOD COUNT 10.5 10^3/ul (4.5-11.0)
[2017-01-23 07:44] LABS: ALB/GLOB RATIO 1.1 (1.1-1.8); BILIRUBIN,TOTAL 0.5 mg/dL (0.2-1.3); CALCIUM 9.1 mg/dL (8.4-10.5); POTASSIUM 3.5 mmol/L (3.6-5.0); TOTAL PROTEIN 7.6 g/dL (5.8-8.3)
[2017-01-23] MEDS: Insulin Reg-LOW-Coverage SC SCH ×4 (07:54→21:40)
[2017-01-23 08:04] LABS: IRON 53 ug/dL (45-180)
[2017-01-23 08:07] LABS: TOTAL PROTEIN, SERUM 6.7 g/dL (6.1-8.1)
--- NOTE | 2017-01-23 09:48 | US ---
PROCEDURE: Bilateral renal artery duplex ultrasound. CLINICAL HISTORY: Renal artery stenosis. Uncontrolled hypertension. Evaluate for renovascular hypertension. PHYSICIAN(S): Tian Orozco M.D. TECHNIQUE: Duplex sonography with color-flow Doppler was used to evaluate the visualized segments of the main renal arteries. The patient was evaluated in a fasting state. Imaging in a supine and decubitus position was performed. Limited evaluation of the arcuate waveforms and resistive indices were performed. FINDINGS: The overall quality of the study is adequate. The kidneys are normal in size, shape, and location. The renal parenchyma, however, is somewhat echogenic in appearance. The right kidney measures 11.8cm in length and the left kidney measures 12.4cm in length. No solid renal masses, abnormal calcifications, or hydronephrosis is seen. There is a 4.6 cm simple cyst lower aspect of the left kidney. The main right renal artery is fairly well visualized from the aorta to the hilum. The peak systolic velocity in the right main renal artery is 53 cm/sec. This is consistent with a 0 to 49% stenosis in the main right renal artery. The arcuate waveforms are normal. The resistive index is normal. The main left renal artery is also fairly well seen from its origin to the renal hilum. The peak systolic velocity in the main left renal artery is 51cm/sec. This corresponds to a 0 to 49% stenosis in the main left renal artery. The arcuate waveforms and resistive indices are normal. IMPRESSION: 1. The main renal arteries are fairly well visualized. 2. No sonographically significant stenosis is identified. 3. The kidneys are normal and symmetric in size. There are no solid renal masses, abnormal calcifications or hydronephrosis noted. The renal is somewhat echogenic
[2017-01-23] MEDS: Pantoprazole 40 mg EC Tab PO SCH (10:43)
[2017-01-23] MEDS: Potassium Chloride 10 mEq ER Tab PO SCH (10:44)
[2017-01-23] MEDS: cefTRIAXone 1 gm 100 ML IVPB SCH (10:47)
[2017-01-23] MEDS: Enoxaparin 30 mg Syringe SC SCH (11:00)
[2017-01-23] MEDS: Azithromycin 500MG/NS 250ml 250 ML IVPB SCH (11:44)
--- NOTE | 2017-01-23 16:43 | PN ---
DATE: 01/23/2017 REASON FOR CONSULTATION AND FOLLOWUP: Cardiac evaluation, status post respiratory failure, positive exacerbation of COPD, pneumonia, successfully extubated. BRIEF CLINICAL HISTORY: This is a 81-year-old male with a past medical history significant for hyper tension, hyperlipidemia, pneumonia, diabetic nephropathy. Came to the Emergency Room because of shor tness of breath, worse to the point that patient requiring intubation. ____ patient successfully ext ubated, lying flat on the bed. Family is at the bedside. Denies any chest pain, shortness of breath , any palpitation. PHYSICAL EXAMINATION: As follows: VITAL SIGNS: Temperature afebrile, heart rate 61, blood pressure 150/90. HEENT: PERRLA. Extraocular muscles intact. NECK: Supple. No carotid bruits. No thyromegaly. CHEST: Clear to auscultation. HEART: S1, S2 regular. ABDOMEN: Soft. EXTREMITIES: Clubbing and cyanosis negative. BLOOD WORKUP: As follows: WBC 18.5, hemoglobin 10.5, hematocrit 32.6, platelet count 329. Chemistr y shows sodium 143, potassium 3.5, chloride 102, carbon dioxide 29, anion gap of 16, BUN 42, creatini ne 2.2. IMPRESSION: Status post respiratory failure, intubated; pneumonia, chronic obstructive pulmonary dis ease exacerbation, chronic renal insufficiency, acute kidney injury, chronic renal insufficiency, cre atinine clearance around at 20-25 mL; stage IV chronic kidney disease, diabetes, hypertension, hyperl ipidemia. No evidence of acute coronary syndrome. No evidence of ischemia. Troponin remains flat. The patient had a stress test 12/12/2016, no reversible ischemia, ejection 37%, cardiomyopathy. Two and a half years ago, stress echo showed ejection fraction 53%, no change from before. Recent echo s hows ejection fraction 45% to 50%, [id number]-[id number] mitral regurgitation, mild tricuspid regurgitatio n, right ventricular systolic pressure 41. RECOMMENDATION: Avoid nephrotoxic medication. Followup nephrology. Monitor BUN and creatinine. Ag gressive treatment of COPD as per pulmonary. Continue metoprolol at 50 mg twice a day. Continue DVT prophylaxis. Discontinue telemetry. No further cardiac workup is planned at this time. Thank you, Dr. Kwan, for providing us the opportunity in taking care of the patient. Yesterday, me toprolol was changed by ____, import/export freight forwarder, to kapilvedilol. We will follow with you. Parker Drew MD cc: [id number] TT: 01/23/2017 16:42:08 Confirmation # [id number] Dictation # [id number] sn
--- NOTE | 2017-01-23 19:02 | PN ---
DATE: 01/23/2017 SUBJECTIVE: The patient seen and examined on the bedside, looks comfortable. No fever, no chills. No nausea, vomiting, diarrhea. No hematuria or hematochezia. No swelling of the leg. No chest pain, no palpitation, no headache, no dizziness. PHYSICAL EXAMINATION: VITAL SIGNS: Temperature 98.5, pulse 62, blood pressure 143/82, respiratory rate 20. HEENT: Head normocephalic, atraumatic. Eye PERRLA. Extraocular muscles intact. Conjunctivae clear. Eyelids unremarkable. Nose patent. Mucous membranes moist. NECK: Supple. No carotid bruit, JVD, thyromegaly. CHEST: Bilaterally symmetrical. HEART: S1, S2 positive. LUNGS: Clear to auscultation. ABDOMEN: Soft. Bowel sounds positive. No organomegaly. EXTREMITIES: No edema, no cyanosis. NEUROLOGIC: The patient is awake, alert, moving all 4 extremities. No focal deficit. MEDICATIONS: Coreg, Cozaar, ipratropium, insulin, potassium, Lasix, Lovenox, Ecotrin, Rocephin, azithromycin. LABORATORY DATA: White blood cells 10.5, hemoglobin 10.5, hematocrit 32.6, platelets 329. Sodium 143, potassium 3.5, BUN 42, creatinine 2.2. Glucose 256 , 198, 184. ASSESSMENT AND PLAN: The patient is a 81-year-old male with history of leukocytosis, improved; anemia, hypokalemia, replaced; renal insufficiency, uncontrolled diabetes mellitus, proteinuria, glucosuria, hematuria. Complement C4 was 46.1. Hepatitis and HIV negative. Seen by cotton ginner helper, Dr. Drew. Status post respiratory failure, intubated; pneumonia, chronic obstructive pulmonary disease exacerbation, renal insufficiency, iecga-ny-ukutwwn kidney injury, hypertension, hypercholesterolemia. No evidence for acute coronary syndrome. No evidence of ischemia as per cardiology. Ejection fraction 37%, cardiomyopathy. Two and a half years ago, echo showed 53%. Avoid nephrotoxic medications. Monitor BUN, creatinine. Chronic obstructive pulmonary disease exacerbation, patient is getting treatment. Continue deep venous thrombosis and gastrointestinal prophylaxis. Dr. Drew discontinued the telemetry. The patient will be seen by nephrology, Congestive heart failure exacerbation improved.volume status and needs to be on regular diuretic, especially with renal insufficiency. Continue intravenous Lasix 30 mg b.i.d. Chronic kidney disease, proteinuric kidney disease. Workup is in the process. Renal artery duplex also ordered by . Hypertension was uncontrolled on losartan, can titrate upward as tolerated. History of chronic kidney disease and bone disorder. The patient is deconditioned and needs physical therapy. Trying to send patient to transitional care unit. Meanwhile, continue present treatment. We will follow up. Court Kwan MD cc: [id number] TT: 01/23/2017 19:02:01 Confirmation # [id number] Dictation # [id number] sn MTDD
--- NOTE | 2017-01-23 20:12 | PN ---
DATE: 01/23/2017 REFERRING PHYSICIAN: Dr. Kwan. SUBJECTIVE: He is lying in the bed, head at 45 degree. Night was unremarkable. Tolerated BiPAP wel l. No headache, no rhinitis, no nausea, no vomiting or diarrhea. No leg pain or leg swelling. OBJECTIVE: GENERAL: No acute distress. VITAL SIGNS: Temp is 98, heart rate 62, respiratory rate is 20, blood pressure 143/82. HEENT: Moist mucous membrane. No ulcer or oral thrush noted. NECK: Supple. No JVD. LUNGS: Have a prolonged expiratory phase. HEART: S1 and S2. ABDOMEN: Soft, nontender. No organomegaly. EXTREMITIES: There is no edema. NEUROLOGIC: Awake, alert, follows simple command. MEDICATIONS: He is on Coreg 12.5 mg twice a day, Cozaar 25 mg daily, DuoNeb q. 6 hours, insulin cov erage, potassium 10 mEq daily, Lasix 30 mg q. 12 hours, Lovenox 30 mg daily, Protonix 40 mg daily, Ro cephin 1 g IV daily, Zithromax 500 mg daily. LABORATORY DATA: Shows hemoglobin 10.5, hematocrit 32.6, WBC 10.5, platelet is 329. Sodium 143, pot assium 3.5, chloride 102, bicarbonate 29, BUN 42, creatinine 2.2, glucose 184, calcium 9.1. Iron is 53, AST 23, ALT 31, alk phos is 86. HIV 1 and 2 have been negative. Hepatitis surface antigen and h epatitis C antibody been negative. Microbiology: Blood cultures, urine cultures, nasal swab is unre markable. IMPRESSION AND PLAN: Chronic obstructive lung disease, hypertension, resolving pulmonary infiltrate, sleep apnea syndrome, renal insufficiency, cardiomyopathy, status post respiratory failure, presentl y on nasal cannula, compliant with BiPAP, doing well since in the hospital, decrease Solu-Medrol. Co ntinue inhaled bronchodilator. Gastric prophylaxis. Deep venous thrombosis prophylaxis. Nephrology followup. Out of bed to chair. Physical therapy. Thank you and will follow with you. Parker Gomez MD cc: [id number] TT: 01/23/2017 20:12:07 Confirmation # [id number] Dictation # [id number] edie
[2017-01-24 07:13] LABS: CREATININE, RANDOM URINE 93 mg/dL (20-370)
[2017-01-24] MEDS: Insulin Reg-LOW-Coverage SC SCH ×4 (08:00→22:15)
[2017-01-24 08:15] LABS: CALCIUM 9.2 mg/dL (8.4-10.5); POTASSIUM 3.9 mmol/L (3.6-5.0)
--- NOTE | 2017-01-24 08:29 | PN ---
DATE: 01/23/2017 The patient is a 81-year-old male with history of hypertension, diabetes, CAD, CHF, sleep apnea and C KD stage IIIB/IV admitted with CHF exacerbation. The patient reports his breathing is well, tolerati ng diet and transferred out of ICU to telemetry 2 days ago. PHYSICAL EXAMINATION: VITAL SIGNS: This morning, blood pressure 172/79, heart rate 61, respirations 20, temperature 98.2, satting 99% on O2 via nasal cannula. GENERAL: No distress, able to speak coherently in full sentences. HEENT: Moist mucous membranes. No scleral icterus. CHEST: Right basal rales. Otherwise, clear to auscultation bilaterally. HEART: S1, S2 positive. NECK: No JVD. EXTREMITIES: No leg edema. LABORATORY DATA: This morning, CBC: WBC 10.5, hemoglobin 10.5, hematocrit 32.6, platelets 329. Rylie dori panel: Sodium 143, potassium 3.5, chloride 102, bicarb 29, BUN 42, creatinine 2.2, glucose 18 4, calcium 9.1, albumin 3.9. Iron saturation 20%, TIBC 265, iron 53, ferritin 62.7. ASSESSMENT: 1. Congestive heart failure exacerbation with systolic dysfunction previously mentioned on an echo a s well as likely diastolic dysfunction. Tenuous volume status indicated by clinical presentation of relatively sudden onset of dyspnea exacerbated by advanced renal insufficiency. Agree with IV Lasix 30 mg b.i.d. Continue small dose of losartan 25 mg daily, can titration up upward as needed. Contin ue beta blockers. 2. Chronic kidney disease, stage IIIB/IV. 3. Proteinuric kidney disease per UA, with progressive decline in GFR since the past 3 years. Most likely etiology is diabetic nephropathy. Further workup obtained showed complements unremarkable, he patitis B and C serologies negative. Awaiting quantitative urine protein creatinine ratio, awaiting SPEP and serum free light chains assay. Renal artery duplex did not show any hemodynamically signifi cant lesion. Also, renal sizes are symmetric going against any unilateral stenosis that would explai n patient's hypertensive emergency and/pulmonary edema. Currently, with stable electrolyte and volum e status. Will need to be maintained on twice daily diuretic abdomen given CHF status and decreasing GFR. 4. Hypertension, uncontrolled. Metoprolol changed to Coreg today, monitor. 5. Diabetes, hemoglobin A1c 7.8 on p.o. meds only. Need to monitor for hypoglycemic events as renal function progressively worsens. 6. Coronary artery disease. Should be on a high potency statin. 7. Anemia. Hemoglobin stable, mild iron deficiency and start p.o. iron. 8. Chronic kidney disease, mineral and bone disease, phosphorus normal. Awaiting PTH result. Ronnie Hatch MD cc: [id number] TT: 01/23/2017 20:15:03 Confirmation # [id number] Dictation # [id number] mn
[2017-01-24] MEDS: Pantoprazole 40 mg EC Tab PO SCH (08:30)
[2017-01-24] MEDS: Potassium Chloride 10 mEq ER Tab PO SCH (09:00)
[2017-01-24] MEDS: cefTRIAXone 1 gm 100 ML IVPB SCH (09:53)
[2017-01-24] MEDS: Enoxaparin 30 mg Syringe SC SCH (09:53)
--- NOTE | 2017-01-24 12:58 | PN ---
DATE: 01/24/2017 REASON FOR CONSULTATION: Cardiac evaluation, status post respiratory failure, history of COPD, now s uccessfully extubated. BRIEF CLINICAL HISTORY: A 81-year-old male with past medical history significant for hypertension, h yperlipidemia, pneumonia, diabetic nephropathy, came to Emergency Room with shortness of breath requi ring intubation. Now, the patient is successfully extubated, now on the floor 3R, 372. Denies any c hest pain, shortness of breath, any palpitation. PHYSICAL EXAMINATION: VITAL SIGNS: Temperature afebrile, heart rate 65, blood pressure 148/82. HEENT: PERRLA. Extraocular muscles intact. NECK: Supple. No carotid bruits. No thyromegaly. CHEST: Clear to auscultation. HEART: S1, S2 regular. ABDOMEN: Soft. EXTREMITIES: Clubbing and cyanosis negative. BLOOD WORKUP: WBC 10.5, hemoglobin 10.5, hematocrit 32.6, platelet count 329. Chemistry shows sodiu m 140, potassium 3.9, chloride 100, carbon dioxide 29, anion gap of 16, BUN 45, creatinine 2.3. IMPRESSION: Renal insufficiency, respiratory failure, anemia, chronic obstructive pulmonary disease, pneumonia. Stress test 12/12/2016, fixed defect, no ischemia; cardiomyopathy, ejection fraction 45-5 0%, mitral to moderate mitral and mild to moderate tricuspid regurgitation, right ventricular systoli c pressure of 41. RECOMMENDATION: Continue to monitor BUN and creatinine. Avoid nephrotoxic medication, treatment for COPD. Continue metoprolol succinate twice a day. DVT prophylaxis. We will follow with you. Thank you, Dr. Kwan, for providing us the opportunity in taking care of the patient. We will follo w with you. Parker Drew MD cc: [id number] TT: 01/24/2017 12:57:53 Confirmation # [id number] Dictation # [id number] tn
[2017-01-24 16:33] VITALS: RESP 18
--- NOTE | 2017-01-24 18:37 | PN ---
DATE: 01/24/2017 REFERRING PHYSICIAN: Dr. Kwan SUBJECTIVE: He is lying in the bed, head at 45 degree. Decreased cough and shortness of breath. No chest pain. No nausea, no vomiting, diarrhea. No leg pain or leg swelling. Tolerated BiPAP well. OBJECTIVE: GENERAL: No acute distress. VITAL SIGNS: Temp is 98, heart rate 63, respiratory rate is 18, blood pressure 133/77, pulse ox 99% nasal cannula. HEENT: Moist mucous membrane. Crowded airway. NECK: Supple. No JVD. LUNGS: Has a fair airflow with few rhonchi. HEART: S1, S2. ABDOMEN: Soft, nontender. No organomegaly. EXTREMITIES: No edema. NEUROLOGIC: Awake, alert, follows simple command. MEDICATIONS: He is on Aldactone 25 mg twice a day, Coreg 12.5 mg twice a day, Cozaar 25 mg daily, Du oNeb q.6 hours p.r.n., insulin coverage, potassium 10 mEq daily, Lasix 20 mg IV twice a day, Lovenox 30 mg subQ daily, Protonix 40 mg daily, Rocephin 1 g IV daily. LABORATORY DATA: Shows sodium 143, potassium 3.9, chloride 102, bicarbonate 29, BUN 45, creatinine 2 .3, glucose 182, calcium is 9.2. IMPRESSION AND PLAN: Chronic obstructive lung disease, hypertension, resolving pulmonary infiltrates , sleep apnea syndrome, renal insufficiency, cardiomyopathy, status post respiratory failure, present ly extubated on nasal cannula. Continue to encourage bilevel positive airway pressure use. Keep hea d elevated at 45 degrees. Will need attended ____ study to qualify for continuous positive airway pr essure as the outpatient. Gastric prophylaxis. Deep venous thrombosis prophylaxis. Cardiology and nephrology followup. Start physical therapy. Thank you and we will follow with you. Parker Gomez MD cc: [id number] TT: 01/24/2017 18:36:38 Confirmation # [id number] Dictation # [id number] sn
--- NOTE | 2017-01-24 21:11 | PN ---
DATE: 01/24/2017 SUBJECTIVE: The patient was seen and examined on the bedside, looks comfortable. No nausea, vomitin g, or diarrhea. No hematuria or hematochezia. Coughing is better. Shortness of breath is better. Swelling of the leg is better. No more congestion. Did physical therapy, walked very well. Tolerat ed BiPAP very well. PHYSICAL EXAMINATION: VITAL SIGNS: Temperature 98, heart rate 63, respiratory rate 18, blood pressure 133/77, pulse oximet er 99% on nasal cannula. HEENT: Head normocephalic, atraumatic. Eyes, PERRLA. Extraocular muscles intact. Conjunctivae pink . Eyelids unremarkable. Nose patent. Mucous membranes moist. NECK: Supple. No carotid bruit, JVD or thyromegaly. LUNGS: Has fair airflow with few rhonchi. HEART: S1, S2 positive. ABDOMEN: Soft. No organomegaly. EXTREMITIES: No edema, no cyanosis. NEUROLOGIC: The patient is awake, alert, follows simple commands. MEDICATIONS: Aldactone, Coreg, Cozaar, DuoNeb, insulin coverage, potassium, Lasix, Lovenox, Protonix , Rocephin. LABORATORY DATA: Sodium 143, potassium 3.9, BUN 43, creatinine 2.3, glucose 182, calcium 9.82. ASSESSMENT AND PLAN: The patient is a 81-year-old male with resolving pulmonary infiltrates, chronic obstructive lung disease, hypertension, sleep apnea syndrome, renal insufficiency, cardiomyopathy, s tatus post respiratory failure, was intubated and extubated, on nasal cannula. Continue to encourage positive airway pressure use. Plan was to take the patient to TCU. The patient got physical therap y today. Gastric prophylaxis. Deep vein thrombosis prophylaxis. Cardiology, nephrology, and pulmon israel is on the case. Seen by Dr. Drew. The patient's stress test on 12/12/2016, fixed defect, no isch emia, cardiomyopathy, ejection fraction 45%-50%. Mild to moderate mitral and mild to moderate tricus pid regurgitation, right ventricular systolic pressure of 41. Seen by Dr. Ronnie Hatch, community music therapist. Hypertension is getting controlled. Metoprolol was changed to Coreg. Diabetic hemoglobin A1c 7.8 on p.o. medicines at home. Need to monitor for hypoglycemic levels as renal function progressively w orsening. Will follow up. Court Kwan MD cc: [id number] TT: 01/24/2017 21:10:25 Confirmation # [id number] Dictation # [id number] rn
--- NOTE | 2017-01-24 23:11 | CP.PCM.PN ---
Subjective - Date & Time of Evaluation Date of Evaluation: 01/24/17 Time of Evaluation: 12:00 - Subjective Subjective: Reports breathing well; Objective - Vital Signs/Intake and Output Vital Signs (last 24 hours): Temp Pulse Resp BP Pulse Ox 98.4 F 63 18 133/77 99 01/24/17 16:00 01/24/17 17:45 01/24/17 16:00 01/24/17 17:47 01/24/17 16:00 Intake and Output: 01/24/17 01/25/17 18:59 06:59 Intake Total 800 780 Output Total 1400 1000 Balance -600 -220 - Medications Medications: Current Medications Albuterol/Ipratropium (Duoneb 3 Mg/0.5 Mg (3 Ml) Ud) 3 ml IH [id number] PRN PRN Reason: Shortness of Breath Carvedilol (Coreg) 12.5 mg PO BID [facility] Last Admin: 01/24/17 17:45 Dose: 12.5 mg Enoxaparin Sodium (Lovenox) 30 mg SC DAILY [facility] Last Admin: 01/24/17 09:53 Dose: 30 mg Furosemide (Lasix) 20 mg IVP BID [facility] Last Admin: 01/24/17 17:47 Dose: 20 mg Ceftriaxone Sodium (Rocephin 1 Gram Ivpb) 100 mls @ 100 mls/hr IVPB DAILY [facility] PRN Reason: Protocol Last Admin: 01/24/17 09:53 Dose: 100 mls/hr Insulin Human Regular (Humulin R Low) 0 units SC ACHS FADY PRN Reason: Protocol Last Admin: 01/24/17 17:45 Dose: 2 units Losartan Potassium (Cozaar) 25 mg PO DAILY [facility] Last Admin: 01/24/17 09:52 Dose: 25 mg Pantoprazole Sodium (Protonix Ec Tab) 40 mg PO ACB [facility] Last Admin: 01/24/17 08:30 Dose: 40 mg Potassium Chloride (Klor-Con 10) 10 meq PO BRK [facility] Last Admin: 01/24/17 09:00 Dose: 10 meq Spironolactone (Aldactone) 25 mg PO BID [facility] Last Admin: 01/24/17 17:45 Dose: 25 mg - Labs Labs: 01/23/17 07:00 01/24/17 07:00 PT 10.2 Seconds (9.9-11.8) 01/19/17 02:21 INR 0.94 (0.93-1.08) 01/19/17 02:21 APTT 25.4 Seconds (23.7-30.8) 01/19/17 02:21 - Constitutional Appears: No Acute Distress Assessment and Plan (1) CHF exacerbation Status: Acute (2) CKD (chronic kidney disease) stage 4, GFR 15-29 ml/min Status: Chronic (3) Anemia Status: Acute (4) Chronic kidney disease-mineral and bone disorder Status: Acute (5) HTN (hypertension) Status: Acute
[2017-01-25 01:16] LABS: KAPPA/LAMBDA FREE RATIO 1.27 (0.26-1.65)
[2017-01-25 01:32] LABS: CALCIUM 8.8 mg/dL (8.6-10.3)
[2017-01-25 06:04] VITALS: BP 171/92
[2017-01-25 08:19] VITALS: PULSE 69; TEMP 98.2; O2SAT 95
[2017-01-25] MEDS: Insulin Reg-LOW-Coverage SC SCH ×2 (08:25→11:13)
[2017-01-25] MEDS: Pantoprazole 40 mg EC Tab PO SCH (09:18)
[2017-01-25] MEDS: Potassium Chloride 10 mEq ER Tab PO SCH (09:19)
[2017-01-25] MEDS: Enoxaparin 30 mg Syringe SC SCH (09:20)
[2017-01-25] MEDS: cefTRIAXone 1 gm 100 ML IVPB SCH (09:21)
[2017-01-25 11:02] LABS: ADD MANUAL DIFF? NO
[2017-01-25 11:06] LABS: BASO # 0.04 K/mm3 (0.0-2.0); BASO % 0.5 % (0.0-3.0); EOS # 0.3 (0.0-0.7); EOS % 3.1 % (1.5-5.0); GRAN # 6.55 (1.4-6.5); GRAN % 77.3 % (50.0-68.0); HEMATOCRIT 31.8 % (42.0-52.0); MEAN CELL VOLUME 86.6 fL (80.0-105.0); MEAN CORPUSCULAR HEMOGLOBIN 28.6 pg (25.0-35.0); MEAN PLATELET VOLUME 10.5 fl (7.0-11.0); MONO # 0.6 (0.1-0.6); MONO % 7.1 % (1.0-6.0); PLATELET COUNT 357 10^3/uL (120.0-450.0); RED CELL DISTRIBUTION WIDTH 13.3 % (11.5-14.5); WHITE BLOOD COUNT 8.5 10^3/ul (4.5-11.0)
[2017-01-25 11:14] LABS: ALB/GLOB RATIO 1.1 (1.1-1.8); BILIRUBIN,TOTAL 0.6 mg/dL (0.2-1.3); CALCIUM 9.1 mg/dL (8.4-10.5); MAGNESIUM 2.2 mg/dL (1.7-2.2); PHOSPHOROUS 3.7 mg/dL (2.5-4.5); POTASSIUM 3.8 mmol/L (3.6-5.0); TOTAL PROTEIN 8.1 g/dL (5.8-8.3)
--- NOTE | 2017-01-25 12:05 | PN ---
DATE: 01/25/2017 The patient is in room 372, bed 1. REASON FOR CONSULTATION AND FOLLOWUP: Cardiac evaluation, status post respiratory failure, COPD. Th e patient now successfully extubated. HISTORY OF PRESENT ILLNESS: A 81-year-old male with past medical history significant for hypertensio n, hyperlipidemia, pneumonia, diabetic nephropathy, came to Emergency Room with shortness of breath r equiring intubation. Now, the patient is successfully extubated and now transferred to the floor in room 372. The patient is sitting in chair comfortably without chest pain, denies shortness of breath , denies palpitation. PHYSICAL EXAMINATION: VITAL SIGNS: Blood pressure 171/92, yesterday blood pressure 133/77, respirations 18, pulse 69, temp erature 98.2. HEAD: Normocephalic. EYES: Pupils normal. Conjunctivae slightly pale. NECK: JVP low. Carotid equal. THORAX: AP diameter normal. LUNGS: No significant rales. CARDIOVASCULAR: S1, S2. ABDOMEN: Soft, no tenderness, no organomegaly. Bowel sounds normal. EXTREMITIES: No clubbing, no cyanosis. LABORATORY DATA: WBC 8.5, hemoglobin 10.5, hematocrit ____, platelet 357. Sodium 137, potassium 3.8 , BUN 42, creatinine 2.2. Random sugar 405. Calcium, phosphorus, magnesium normal. Total protein 8 .1, albumin 4.2 which is normal. AST, ALT normal. DIAGNOSES: Renal insufficiency, respiratory failure, successfully extubated, anemia, chronic obstruc tive pulmonary disease, pneumonia. Stress test 12/12/2016 showed no ischemia, ejection fraction 45-50 %, which shows mild decrease in left ventricular systolic function, mild to moderate mitral regurgita tion and mild to moderate tricuspid regurgitation, right ventricle systolic pressure of 41 mmHg. PLAN: The patient is on Aldactone 25 b.i.d., carvedilol 12.5 b.i.d., losartan 25 daily, DuoNeb hand nebulizer therapy, potassium 10 mEq p.o. daily, furosemide 20 mg IV b.i.d., Lovenox 30 mg subQ daily, Protonix 40 p.o. daily. We will repeat chest x-ray today and we will follow with you. Parker Barrera MD cc: [id number] TT: 01/25/2017 12:04:40 Confirmation # [id number] Dictation # [id number]
--- NOTE | 2017-01-25 12:19 | PN ---
DATE: 01/25/2017 REFERRING PHYSICIAN: Dr. Kwan SUBJECTIVE: He is sitting up in a chair. Night is unremarkable. Tolerated BiPAP well. Breathing i s better. No nausea, no vomiting, diarrhea, leg pain or leg swelling. OBJECTIVE: GENERAL: No acute distress. VITAL SIGNS: Temp is 98, heart rate is 69, respiratory rate is 20, blood pressure 171/92, pulse ox i s 94% on nasal cannula. HEENT: Moist mucous membranes. Crowded airway. Mallampati score is 4. NECK: Supple. No JVD. LUNGS: Has a fair airflow with few rhonchi. HEART: S1 and S2. ABDOMEN: Soft, nontender. No organomegaly. EXTREMITIES: There is no edema. NEUROLOGIC: Awake, alert, follows simple command. MEDICATIONS: He is on Aldactone 25 mg twice a day, Coreg 12.5 mg twice a day, Cozaar 25 mg daily, Du oNeb q.6 hours, insulin coverage, potassium 10 mEq daily, Lasix 20 mEq daily twice a day, Lovenox 30 mg daily, Protonix 40 mg daily. LABORATORY DATA: Shows hemoglobin 10.5, hematocrit 31.8, WBC 8.5, platelet count is 357. Sodium 137 , potassium ____, chloride 97, bicarbonate 26, BUN 42, creatinine 2.2, calcium 9.1, magnesium 2.2, T 24, ALT 30, alk phos is 90, albumin is 4.2. IMPRESSION AND PLAN: Chronic obstructive lung disease, hypertension, resolved infiltrate, sleep apne a syndrome, renal insufficiency, cardiomyopathy, status post respiratory failure, presently extubated , on nasal cannula. The patient being discharged home. Will need to do attended sleep study to qual keenan patient for continuous positive airway pressure. Needs renal follow up with followup SMA-7, BUN, creatinine. Gastric prophylaxis. Will also need PFT to assure the lung stability and decision to r estart bronchodilator. Parker Gomez MD cc: [phone] TT: 01/25/2017 12:18:48 Confirmation # [id number] Dictation # [id number]
--- NOTE | 2017-01-25 12:52 | RAD ---
HISTORY: SOB. Compare to see improvement. COMPARISON: 01/19/2017 TECHNIQUE: Chest PA and lateral FINDINGS: LUNGS: No active pulmonary disease. PLEURA: No significant pleural effusion identified. No pneumothorax apparent. CARDIOVASCULAR: Normal. OSSEOUS STRUCTURES: No significant abnormalities. VISUALIZED UPPER ABDOMEN: Normal. OTHER FINDINGS: None. IMPRESSION: No active disease.
--- NOTE | 2017-01-25 23:34 | CP.PCM.PN ---
Objective - Vital Signs/Intake and Output Vital Signs (last 24 hours): Temp Pulse Resp BP Pulse Ox 98.2 F 69 18 171/92 H 95 01/25/17 06:00 01/25/17 09:18 01/25/17 06:00 01/25/17 09:19 01/25/17 06:00 Intake and Output: 01/25/17 01/26/17 18:59 06:59 Intake Total 920 Balance 920 - Labs Labs: 01/25/17 11:00 01/25/17 11:00 PT 10.2 Seconds (9.9-11.8) 01/19/17 02:21 INR 0.94 (0.93-1.08) 01/19/17 02:21 APTT 25.4 Seconds (23.7-30.8) 01/19/17 02:21 Assessment and Plan (1) CHF exacerbation Status: Acute (2) CKD (chronic kidney disease) stage 4, GFR 15-29 ml/min Status: Chronic (3) HTN (hypertension) Status: Acute (4) Chronic kidney disease-mineral and bone disorder Status: Acute (5) Anemia Status: Acute
[2017-01-26 06:56] LABS: BETA 1 GLOBULIN 0.4 g/dL (0.4-0.6); BETA 2 GLOBULIN 0.3 g/dL (0.2-0.5); GAMMA GLOBULIN 0.9 g/dL (0.8-1.7)
--- NOTE | 2017-01-26 10:11 | DS ---
Discharged to home. CHIEF COMPLAINT: Shortness of breath, coughing, chest pain. HISTORY OF PRESENT ILLNESS: The patient is a 81-year-old male with past medical history of [id number] diabetes mellitus, uncontrolled; congestive heart failure, pneumonia, diabetic nephropathy, hypertension, who came to the Emergency Room by EMS with respiratory distress requiring emergent intubation in ER. According to family, the patient just abruptly woke up with onset of worsening shortness of breath. First he called his brother, then shortness of breath increased, then they called 911 and came to the Emergency Room. The patient was admitted, put in the unit. Seen by Dr. Drew ( financial planning analyst), Dr. Gomez (fruit canner). Has renal insufficiency. Seen by the deputy k 9 also. Bladder ultrasound is done. Renal ultrasound is done. Renal artery duplex is done. Chest x-ray is done. Did better. From the unit, the patient was transferred to telemetry; from telemetry, to the medical floor. Plan was to give him rehab , but according do physical therapy notes, the patient is doing very well, walking around, and does not need physical therapy. Discharged to home with prescription of medications and to follow up in my office, financial planning analyst and fruit canner. PAST MEDICAL HISTORY: Congestive heart failure, hypertension, history of pneumonia, neuropathy, bilateral lens implants; diabetes mellitus, type 2, non- insulin-requiring. FAMILY HISTORY: Father and mother noncontributory. HABITS: Never smoked. No drugs, no ethanol. ALLERGIES: The patient is not allergic with any medications. HOME MEDICATIONS: Reviewed by me. REVIEW OF SYSTEMS: The patient is seen and examined on the bedside. Looks comfortable. Very happy to go home. No nausea, vomiting, or diarrhea. No hematuria or hematochezia. No swelling of the legs. No headache, no dizziness. PHYSICAL EXAMINATION: VITAL SIGNS: Temperature 98, heart rate 69, respiratory rate 20, blood pressure 170/92, and pulse oximetry 94% on nasal cannula. HEENT: Head normocephalic, atraumatic. Eyes: PERRLA. Extraocular muscles intact. Conjunctivae pink. Eyelids unremarkable. Nose patent. NECK: Supple. No carotid bruit. No JVD or thyromegaly. CHEST: Bilaterally symmetrical. HEART: S1, S2 positive. LUNGS: Clear to auscultation. ABDOMEN: Soft. Bowel sounds present. No organomegaly. EXTREMITIES: No edema, no cyanosis. NEUROLOGIC: The patient is awake, alert, moving all 4 extremities. No focal deficit. MEDICATIONS: Aldactone, Coreg, Cozaar, DuoNeb, insulin, potassium, Lasix, Lovenox, Protonix. LABORATORY DATA: Hemoglobin 10.5, hematocrit 31.8, white blood cells 8.5, platelets 357. Sodium 137, chloride 97, BUN 42, creatinine 2.2. AST 24, ALT 30. ASSESSMENT AND PLAN: The patient is a 81-year-old male with chronic obstructive lung disease, came with respiratory failure, intubated, hypertension , resolved infiltrates, sleep apnea syndrome, renal insufficiency. [employer] is on the case. He did renal ultrasound, kidney ultrasound and renal artery ultrasound. Cardiomyopathy, status post respiratory failure. Presently doing better on a nasal cannula. Plan was to give and at least TCU for rehabilitation, but according to physical therapy at admission, the patient is doing very well and does not need any physical therapy. Needs to attend sleep study to qualify patient for continuous positive pressure airway. Needs additional follow up with Dr. Ronnie Hatch. Gastric prophylaxis. Will also need PFT as outpatient. Prescription of medicines written by nurse practitioner Eli. Will follow up. Court Kwan MD cc: [id number] TT: 01/26/2017 10:10:42 mn [email or web address]
== END 2017-01-25 14:32 | disposition home or self-care (01) | DRG 208 ==
LOC: ED 01:23 → ERH 03:40 → CCU 05:54 → 2RNO 01-22 20:39 → 2RSO 01-22 22:51 → 3RSO 01-23 18:40
PROVIDERS: ADMIT Internal Medicine; ATTEND Internal Medicine
PROC: 5A1935Z Respiratory Ventilation, Less than 24 Consecutive Hours (ICD-10-PCS; principal; 2017-01-19)
PROC: 0BH17EZ Insertion of Endotracheal Airway into Trachea, Via Natural or Artificial Opening (ICD-10-PCS; 2017-01-19)
PROC: 5A09357 Assistance with Respiratory Ventilation, Less than 24 Consecutive Hours, Continuous Positive Airway Pressure (ICD-10-PCS; 2017-01-19)
DX: J96.01 Acute respiratory failure with hypoxia (principal); I50.43 Acute on chronic combined systolic (congestive) and diastolic (congestive) heart failure; J18.9 Pneumonia, unspecified organism; J44.1 Chronic obstructive pulmonary disease with (acute) exacerbation; N18.4 Chronic kidney disease, stage 4 (severe); I13.0 Hypertensive heart and chronic kidney disease with heart failure and stage 1 through stage 4 chronic kidney disease, or unspecified chronic kidney disease; E11.21 Type 2 diabetes mellitus with diabetic nephropathy; I42.9 Cardiomyopathy, unspecified; N17.9 Acute kidney failure, unspecified; J44.0 Chronic obstructive pulmonary disease with (acute) lower respiratory infection; E11.40 Type 2 diabetes mellitus with diabetic neuropathy, unspecified; E11.65 Type 2 diabetes mellitus with hyperglycemia; E11.22 Type 2 diabetes mellitus with diabetic chronic kidney disease; D64.9 Anemia, unspecified; I25.10 Atherosclerotic heart disease of native coronary artery without angina pectoris; E78.5 Hyperlipidemia, unspecified; G47.30 Sleep apnea, unspecified; E78.1 Pure hyperglyceridemia; E78.00 Pure hypercholesterolemia, unspecified; M89.9 Disorder of bone, unspecified; I08.3 Combined rheumatic disorders of mitral, aortic and tricuspid valves; Z91.14 Patient's other noncompliance with medication regimen; Z91.19 Patient's noncompliance with other medical treatment and regimen; I25.2 Old myocardial infarction; Z96.1 Presence of intraocular lens

== ENCOUNTER 2019-01-01 09:07 | Outpatient (CLI) | payer MEDICARE | END 2019-01-01 09:08 | disposition home or self-care (01) | LOC: LAB 09:07 ==

== ENCOUNTER 2019-01-11 08:08 | Outpatient (CLI) | payer MEDICARE | END 2019-01-11 08:09 | disposition home or self-care (01) | LOC: RAD 08:08 ==

== ENCOUNTER → 2019-01-22 | Outpatient (CLI) | payer MEDICARE | LOC: RAD 07:52 ==

== ENCOUNTER 2019-01-24 09:45 | Emergency (ER) | payer MEDICARE ==
[2019-01-24 09:55] VITALS: BP 150/87; PULSE 86; RESP 18; TEMP 97.4; O2SAT 99
[2019-01-24 09:57] VITALS: BMI 25.3
--- NOTE | 2019-01-24 10:23 | ED PDOC ---
Arrival/HPI - General Chief Complaint: Male Genitourinary Time Seen by Provider: 01/24/19 09:47 Historian: Patient, Family - History of Present Illness Narrative History of Present Illness (Text): 01/24/19 09:47 James Pride is an 83 year old male, with a past medical history of hypertension and diabetes, on bactrim, who presents to the emergency department complaining of suprapubic pain secondary to urinary retention for 3 days. Patient informs he was here at [facility] for US on Monday and was unable to empty bladder since. Patient is only able to urinate "drops". Per family, patient also informs of bloody urine s/p cytoscopy w/ Dr. King Monday last week. Per family, notes low blood sugar earlier and was given a lollipop. Patient is on second day of prescribed bactrim. No other medications. Denies fevers, chills, night sweats. Denies rashes or testicular pain. Denies abdominal pain, nausea, vomiting or diarrhea. Denies chest pain, shortness of breath, cough. Denies headache, dizziness. Denies vision changes. Denies back pain or neck pain. No other complaints. PMD: Dr. Kwan Urologist: Dr. King Time/Duration: < week (3 days ago) Symptom Onset: Sudden Symptom Course: Unchanged Activities at Onset: Light Context: Home Past Medical History - Provider Review Nursing Documentation Reviewed: Yes - Infectious Disease Hx of Infectious Diseases: None - Tetanus Immunization Tetanus Immunization: Unknown - Cardiac Hx Cardiac Disorders: Yes Hx Congestive Heart Failure: Yes Hx Hypertension: Yes - Pulmonary Hx Respiratory Disorders: Yes Hx Pneumonia: Yes (HAD DOUBLE PNEUMONIA H/O) - Neurological Hx Neurological Disorder: Yes (NEUROPATHY) - HEENT Hx HEENT Disorder: Yes Hx Cataracts: Yes (BILATERAL SX WITH LENS IMPLANT) - Renal Hx Renal Disorder: No - Endocrine/Metabolic Hx Diabetes Mellitus Type 2: Yes - Hematological/Oncological Hx Blood Disorders: No - Integumentary Hx Dermatological Disorder: No - Musculoskeletal/Rheumatological Hx Falls: No - Gastrointestinal Hx Gastrointestinal Disorders: No - Genitourinary/Gynecological Hx Genitourinary Disorders: No - Psychiatric Hx Psychophysiologic Disorder: Yes (BEER DRINKER H/O) Hx Depression: No Hx Emotional Abuse: No Hx Physical Abuse: No Hx Substance Use: No - Past Surgical History Past Surgical History: No Previous - Anesthesia Hx Anesthesia: No Hx Anesthesia Reactions: No Hx Malignant Hyperthermia: No - Suicidal Assessment Feels Threatened In Home Enviroment: No Family/Social History - Physician Review Nursing Documentation Reviewed: Yes Family/Social History: Unknown Family HX Smoking Status: Never Smoked Hx Alcohol Use: Yes (USED TO DRINK BEER.H/O) Hx Substance Use: No Allergies/Home Meds Allergies/Adverse Reactions: Allergies No Known Allergies Allergy (Verified 12/08/16 15:02) Home Medications: Home Meds Medication Instructions Recorded Confirmed Atorvastatin [Lipitor] 40 mg PO DAILY 01/24/19 01/24/19 Calcitriol [Rocaltrol] 0.25 mcg PO Q3D 01/24/19 01/24/19 Calcium Citrate/Vitamin D3 1 each PO DAILY 01/24/19 01/24/19 [Calcium Citrate - Vit D3 Tab] Docusate Sodium [Colace] 100 mg PO PRN PRN 01/24/19 01/24/19 Enalapril Maleate [Vasotec] 20 mg PO DAILY 01/24/19 01/24/19 Ferrous Sulfate [Feosol] 325 mg PO DAILY 01/24/19 01/24/19 Gemfibrozil 600 mg PO BID 01/24/19 01/24/19 Glipizide [Glipizide ER] 10 mg PO DAILY 01/24/19 01/24/19 Losartan Potassium [Cozaar] 100 mg PO DAILY 01/24/19 01/24/19 Metoprolol Succinate [Toprol Xl] 50 mg PO BID 01/24/19 01/24/19 Phenazopyridine HCl [Pyridium] 200 mg PO TID 01/24/19 01/24/19 SITagliptin [Januvia] 50 mg PO DAILY 01/24/19 01/24/19 Spironolactone [Aldactone] 25 mg PO BID 01/24/19 01/24/19 Sulfamethoxazole/Trimethoprim 80 - 160 mg PO BID 01/24/19 01/24/19 [Bactrim DS Tab] Tamsulosin [Flomax] 0.4 mg PO DAILY 01/24/19 01/24/19 hydrALAZINE [Apresoline] 50 mg PO BID 01/24/19 01/24/19 Review of Systems - Physician Review All systems were reviewed & negative as marked: Yes - Review of Systems Constitutional: absent: Fevers, Night Sweats, Other (chills) Eyes: absent: Vision Changes Respiratory: absent: SOB, Cough Cardiovascular: absent: Chest Pain Gastrointestinal: Abdominal Pain (suprapubic pain secondary to urinary retention). absent: Stool Changes, Constipation, Diarrhea, Nausea, Appetite Changes, Hematochezia, Hematemesis Genitourinary Male: Hematuria (s/p cytoscopy), Urinary Output Changes (urinary retention). absent: Other (testicular tenderness, swelling) Musculoskeletal: absent: Back Pain, Neck Pain Skin: absent: Rash Neurological: absent: Headache, Dizziness Physical Exam Vital Signs Reviewed: Yes Vital Signs Temp Pulse Resp BP Pulse Ox 01/24/19 09:55 97.4 F L 86 18 150/87 99 Temperature: Afebrile Blood Pressure: Normal Pulse: Regular Respiratory Rate: Normal Appearance: Positive for: Well-Appearing, Non-Toxic, Comfortable Pain Distress: Mild Mental Status: Positive for: Alert and Oriented X 3 Finger Stick Blood Glucose: 194 - Systems Exam Head: Present: Atraumatic, Normocephalic Pupils: Present: PERRL Extroacular Muscles: Present: EOMI Conjunctiva: Present: Normal Ears: Present: NORMAL TM, Normal Canal. No: Erythema Mouth: Present: Moist Mucous Membranes Pharnyx: Present: Normal. No: ERYTHEMA, EXUDATE, TONSILS ENLARGED Neck: Present: Normal Range of Motion. No: Meningeal Signs, MIDLINE TENDERNESS, JVD, Lymphadenopathy Respiratory/Chest: Present: Clear to Auscultation, Good Air Exchange. No: Respiratory Distress, Accessory Muscle Use, Wheezes, Rales, Rhonchi Cardiovascular: Present: Regular Rate and Rhythm, Normal S1, S2. No: Murmurs, Rub, Gallop Abdomen: Present: Tenderness (suprapubic tenderness to palpation), Normal Bowel Sounds. No: Distention, Peritoneal Signs, Rebound, Guarding Genitourinary Male: Present: Normal External Genitalia. No: Lesions Back: Present: Normal Inspection. No: CVA Tenderness, Midline Tenderness Upper Extremity: Present: Normal Inspection, Normal ROM, NORMAL PULSES, Neurovascularly Intact, Capillary Refill < 2s. No: Cyanosis, Edema Lower Extremity: Present: Normal Inspection, NORMAL PULSES, Normal ROM, Neurovascularly Intact, Capillary Refill < 2 s. No: Edema Neurological: Present: GCS=15, CN II-XII Intact, Speech Normal, Motor Func Grossly Intact, Normal Sensory Function Skin: Present: Warm, Dry, Normal Color. No: Rashes Psychiatric: Present: Alert, Oriented x 3, Normal Insight, Normal Concentration Medical Decision Making ED Course and Treatment: 01/24/19 09:47 Impression: Patient is an 83 year old male, with a past medical history of hypertension and diabetes, on bactram, who presents to the emergency department complaining of suprapubic pain secondary to urinary retention since 3 days. Per family, patient was here at [facility] for an US and was unable to urinate on Monday. Patient is on second day of bactram prescribed by Dr. Kwan. Also note bloody urine after cytoscopy last week on Monday. Denies F/C/N/V/D. Denies testicular pain or rash. On exam; suprapubic tenderness. Otherwise unremarkable. Differential Diagnosis included but are not limited to: BPH Plan: -- Urinary Catheter Insertion -- Urinalysis -- Reassess and disposition Prior Visits: Notes and results from previous visits were reviewed. Progress Notes: 01/24/19 11:20 bladder scanned prior: 1L fluid noted in bladder catheter placed: drained ~1L. Pt notes immideate improvement of pain Repeat abd exam s/p cathether placement non-ttp No CVAT on repeat exam pending UA result 01/24/19 11:25 UA unremarkable pt remains w/ out any other complaints pt to continue abx, given leg bag, clear for d/c home with return indications and f/u They are requesting a different urologist then Kyler, will refer to Dr. Betancourt pt and son agreeable to plan - Scribe Statement The provider has reviewed the documentation as recorded by the Scribe Thomas Mart All medical record entries made by the Scribe were at my direction and personally dictated by me. I have reviewed the chart and agree that the record accurately reflects my personal performance of the history, physical exam, medical decision making, and the department course for this patient. I have also personally directed, reviewed, and agree with the discharge instructions and disposition. Disposition/Present on Arrival - Present on Arrival Any Indicators Present on Arrival: No History of DVT/PE: No History of Uncontrolled Diabetes: No Urinary Catheter: No History of Decub. Ulcer: No History Surgical Site Infection Following: None - Disposition Have Diagnosis and Disposition been Completed?: Yes Diagnosis: Urinary retention Disposition: HOME/ ROUTINE Disposition Time: 11:27 Patient Problems: Current Active Problems Problem Status Onset Urinary retention Acute Condition: STABLE Discharge Instructions (ExitCare): Oneill Catheter, Male, Urinary Retention (DC) Additional Instructions: CONTINUE THE ANTIBIOTICS. SEE YOUR PRIMARY CARE DOCTOR AND DR. SPIKE PRIDE, thank you for letting us take care of you today. Your provider was Jordi Knox and you were treated for GROIN PAIN. The emergency medical care you received today was directed at your acute symptoms. If you were prescribed any medication, please fill it and take as directed. It may take several days for your symptoms to resolve. Return to the Emergency Department if your symptoms worsen, do not improve, or if you have any other problems. Please contact your doctor or call one of the physicians/clinics you have been referred to that are listed on the Patient Visit Information form that is included in your discharge packet. Bring any paperwork you were given at discharge with you along with any medications you are taking to your follow up visit. Our treatment cannot replace ongoing medical care by a primary care provider outside of the emergency department. Thank you for allowing the [facility] team to be part of your care today. If you had an X-Ray or CT scan: A Radiologist will review the ED reading if any change in treatment is needed we will contact you. If you had a blood, urine, or wound culture: It will take several days for the results, if any change in treatment is needed we will contact you. If you had an STI test: It will take 48 hours for the results. Please call after 1 week if you have not heard back. Referrals: Court Kwan MD [Primary Care Provider] - Follow up with primary Seven Betancourt MD [Staff Provider] - Follow up with primary [facility] [Outside] - Follow up with primary [employer] [facility] [Outside] - Follow up with primary [facility] at [facility] [Outside] - Follow up with primary Forms: [employer] ([place])
[2019-01-24 11:06] LABS: URINE BILIRUBIN NEGATIVE (NEGATIVE); URINE BLOOD NEGATIVE (NEGATIVE); URINE GLUCOSE (UA) NEGATIVE (NEGATIVE); URINE LEUKOCYTE ESTERASE NEGATIVE Leu/uL (NEGATIVE); URINE PROTEIN TRACE mg/dL (<30 mg/dL); URINE UROBILINOGEN 0.2 E.U./dL (<1 E.U./dL)
[2019-01-24 11:08] LABS: URINE COLOR YELLOW (YELLOW)
[2019-01-24 11:09] LABS: URINE APPEARANCE CLEAR (CLEAR)
[2019-01-24 11:20] LABS: URINE AMORPHOUS SEDIMENT FEW /hpf; URINE BACTERIA FEW /hpf; URINE RBC 0 - 2 /hpf (0-2); URINE WBC 0 - 2 /hpf (0-6)
== END 2019-01-24 11:47 | disposition home or self-care (01) ==
LOC: ED 09:45
DX: R33.9 Retention of urine, unspecified (principal); I11.0 Hypertensive heart disease with heart failure; I50.9 Heart failure, unspecified; E11.9 Type 2 diabetes mellitus without complications

== ENCOUNTER 2019-02-05 01:47 | Emergency (ER) | payer MEDICARE ==
[2019-02-05 02:12] VITALS: RESP 18; TEMP 97.4
[2019-02-05 03:12] VITALS: PULSE 60; O2SAT 96
--- NOTE | 2019-02-05 03:38 | ED PDOC ---
Arrival/HPI - General Chief Complaint: Male Genitourinary Time Seen by Provider: 02/05/19 01:48 Historian: Patient - History of Present Illness Narrative History of Present Illness (Text): 02/05/19 02:30 A 83 year old male, whose past medical history includes BPH, hypertension, and diabetes, presents to the emergency department complaining of inability to urinate in the past day. Patient sates he had a recent removal of a urinary catheter yesterday. Patient denies any fever, chills, nausea, vomiting, chest pain, back pain, or any other complaints. PMD: Dr. Kwan Time/Duration: Other (1 day) Symptom Onset: Gradual Symptom Course: Unchanged Activities at Onset: Light Context: Home Past Medical History - Provider Review Nursing Documentation Reviewed: Yes - Infectious Disease Hx of Infectious Diseases: None - Tetanus Immunization Tetanus Immunization: Unknown - Cardiac Hx Cardiac Disorders: Yes Hx Congestive Heart Failure: Yes Hx Hypertension: Yes - Pulmonary Hx Respiratory Disorders: Yes Hx Pneumonia: Yes (HAD DOUBLE PNEUMONIA H/O) - Neurological Hx Neurological Disorder: Yes (NEUROPATHY) - HEENT Hx HEENT Disorder: Yes Hx Cataracts: Yes (BILATERAL SX WITH LENS IMPLANT) - Renal Hx Renal Disorder: No - Endocrine/Metabolic Hx Diabetes Mellitus Type 2: Yes - Hematological/Oncological Hx Blood Disorders: No - Integumentary Hx Dermatological Disorder: No - Musculoskeletal/Rheumatological Hx Falls: No - Gastrointestinal Hx Gastrointestinal Disorders: No - Genitourinary/Gynecological Hx Genitourinary Disorders: Yes Hx Hematuria: Yes Other/Comment: urine retention - Psychiatric Hx Psychophysiologic Disorder: Yes (BEER DRINKER H/O) Hx Depression: No Hx Emotional Abuse: No Hx Physical Abuse: No Hx Substance Use: No - Past Surgical History Past Surgical History: No Previous - Anesthesia Hx Anesthesia: No Hx Anesthesia Reactions: No Hx Malignant Hyperthermia: No - Suicidal Assessment Feels Threatened In Home Enviroment: No Family/Social History - Physician Review Nursing Documentation Reviewed: Yes Family/Social History: No Known Family HX Smoking Status: Never Smoked Hx Alcohol Use: Yes (USED TO DRINK BEER.H/O) Hx Substance Use: No Allergies/Home Meds Allergies/Adverse Reactions: Allergies No Known Allergies Allergy (Verified 02/05/19 02:08) Home Medications: Home Meds Medication Instructions Recorded Confirmed Atorvastatin [Lipitor] 40 mg PO DAILY 01/24/19 01/24/19 Calcitriol [Rocaltrol] 0.25 mcg PO Q3D 01/24/19 01/24/19 Calcium Citrate/Vitamin D3 1 each PO DAILY 01/24/19 01/24/19 [Calcium Citrate - Vit D3 Tab] Docusate Sodium [Colace] 100 mg PO PRN PRN 01/24/19 01/24/19 Enalapril Maleate [Vasotec] 20 mg PO DAILY 01/24/19 01/24/19 Ferrous Sulfate [Feosol] 325 mg PO DAILY 01/24/19 01/24/19 Gemfibrozil 600 mg PO BID 01/24/19 01/24/19 Glipizide [Glipizide ER] 10 mg PO DAILY 01/24/19 01/24/19 Losartan Potassium [Cozaar] 100 mg PO DAILY 01/24/19 01/24/19 Metoprolol Succinate [Toprol Xl] 50 mg PO BID 01/24/19 01/24/19 Phenazopyridine HCl [Pyridium] 200 mg PO TID 01/24/19 01/24/19 SITagliptin [Januvia] 50 mg PO DAILY 01/24/19 01/24/19 Spironolactone [Aldactone] 25 mg PO BID 01/24/19 01/24/19 Sulfamethoxazole/Trimethoprim 80 - 160 mg PO BID 01/24/19 01/24/19 [Bactrim DS Tab] Tamsulosin [Flomax] 0.4 mg PO DAILY 01/24/19 01/24/19 hydrALAZINE [Apresoline] 50 mg PO BID 01/24/19 01/24/19 Review of Systems - Physician Review All systems were reviewed & negative as marked: Yes - Review of Systems Constitutional: absent: Fevers, Other (chills) Cardiovascular: absent: Chest Pain Gastrointestinal: Other (inability to urinate). absent: Nausea, Vomiting Musculoskeletal: absent: Back Pain Physical Exam Vital Signs Reviewed: Yes Vital Signs Temp Pulse Resp BP Pulse Ox 02/05/19 03:02 60 18 130/77 96 02/05/19 02:11 97.4 F L 67 18 148/94 H 97 Temperature: Hypothermic Blood Pressure: Hypertensive Pulse: Regular Respiratory Rate: Normal Mental Status: Positive for: Alert and Oriented X 3 - Systems Exam Head: Present: Atraumatic, Normocephalic Pupils: Present: PERRL Extroacular Muscles: Present: EOMI Conjunctiva: Present: Normal Respiratory/Chest: Present: Clear to Auscultation, Good Air Exchange. No: Respiratory Distress, Accessory Muscle Use Cardiovascular: Present: Regular Rate and Rhythm, Normal S1, S2. No: Murmurs Abdomen: Present: Distention (suprapubic distention) Neurological: Present: GCS=15, CN II-XII Intact, Speech Normal Medical Decision Making ED Course and Treatment: 02/05/19 02:30 Impression: 83 year old male presenting to the emergency room complaining of inability to urinate. Plan: -- Motrin -- Reassess and disposition Prior Visits: Notes and results from previous visits were reviewed. Progress Notes: 02/05/19 02:30 Urinary francois catheter placed after noted liter of fluid on ultrasound. Flowing passage of urinary catheter, patient had a free flowing of urine with relief. 02/05/19 03:[address] Chávez who agrees with treatment and agrees to follow up with the patient tomorrow, family is notified. - Medication Orders Current Medication Orders: Discontinued Medications Ibuprofen (Motrin Tab) 600 mg PO STAT STA Stop: 02/05/19 02:36 Last Admin: 02/05/19 02:40 Dose: 600 mg MAR Pain/Vitals Document 02/05/19 02:40 RG (Rec: 02/05/19 02:41 [id number]) Location Upper or Lower Lower Pain Location Body Site Abdomen Description Pressure Intensity 10 Scale Used Numeric Pain Behavior Moaning Withdrawal from Touch - Scribe Statement The provider has reviewed the documentation as recorded by the Sengibdillon Hathaway All medical record entries made by the Sengibdillon were at my direction and personally dictated by me. I have reviewed the chart and agree that the record accurately reflects my personal performance of the history, physical exam, medic al decision making, and the department course for this patient. I have also personally directed, reviewed, and agree with the discharge instructions and disposition. Disposition/Present on Arrival - Present on Arrival Any Indicators Present on Arrival: No History of DVT/PE: No History of Uncontrolled Diabetes: No Urinary Catheter: No History of Decub. Ulcer: No History Surgical Site Infection Following: None - Disposition Have Diagnosis and Disposition been Completed?: Yes Diagnosis: Urinary retention Disposition: HOME/ ROUTINE Disposition Time: 03:45 Patient Plan: Discharge Patient Problems: Current Active Problems Problem Status Onset Urinary retention Acute Condition: GOOD Discharge Instructions (ExitCare): Urinary Retention (DC) Additional Instructions: Maintain urinary francois catheter/leg bag/follow up with Dr.Shulman brock.(Discussed with who will make contact by phone with farhad brock) Forms: [facility] (Urdu)
[2019-02-05 04:28] VITALS: BP 127/75
== END 2019-02-05 04:00 | disposition home or self-care (01) ==
LOC: ED 01:47
DX: N40.1 Benign prostatic hyperplasia with lower urinary tract symptoms (principal); R33.9 Retention of urine, unspecified; E11.9 Type 2 diabetes mellitus without complications; I10 Essential (primary) hypertension

== ENCOUNTER 2019-03-07 05:39 | Emergency (ER) | payer MEDICARE ==
[2019-03-07 05:51] VITALS: RESP 18; TEMP 97.5
--- NOTE | 2019-03-07 05:54 | ED PDOC ---
Arrival/HPI - General Chief Complaint: Male Genitourinary Time Seen by Provider: 03/07/19 05:52 Historian: Patient - History of Present Illness Narrative History of Present Illness (Text): 03/07/19 05:52 James Pride is an 83 year old male, whose past medical history includes BPH, hypertension, and diabetes, who presents to the ED complaining of urinary retention. Patient had his Oneill catheter removed yesterday and has been unable to urinate. Patient denies any fever, chills, chest pain, shortness of breath, nausea, vomiting, diarrhea, back pain, neck pain, headache, dizziness, or any other complaints. Symptom Onset: Gradual Symptom Course: Unchanged Activities at Onset: Light Context: Home Past Medical History - Provider Review Nursing Documentation Reviewed: Yes - Infectious Disease Hx of Infectious Diseases: None - Tetanus Immunization Tetanus Immunization: Unknown - Cardiac Hx Cardiac Disorders: Yes Hx Congestive Heart Failure: Yes Hx Hypertension: Yes - Pulmonary Hx Respiratory Disorders: Yes Hx Pneumonia: Yes (HAD DOUBLE PNEUMONIA H/O) - Neurological Hx Neurological Disorder: Yes (NEUROPATHY) - HEENT Hx HEENT Disorder: Yes Hx Cataracts: Yes (BILATERAL SX WITH LENS IMPLANT) - Renal Hx Renal Disorder: No - Endocrine/Metabolic Hx Endocrine Disorders: Yes Hx Diabetes Mellitus Type 2: Yes - Hematological/Oncological Hx Blood Disorders: No - Integumentary Hx Dermatological Disorder: No - Musculoskeletal/Rheumatological Hx Falls: No - Gastrointestinal Hx Gastrointestinal Disorders: No - Genitourinary/Gynecological Hx Genitourinary Disorders: Yes Hx Hematuria: Yes Other/Comment: urine retention - Psychiatric Hx Psychophysiologic Disorder: Yes (BEER DRINKER H/O) Hx Depression: No Hx Emotional Abuse: No Hx Physical Abuse: No Hx Substance Use: No - Past Surgical History Past Surgical History: No Previous - Anesthesia Hx Anesthesia: No Hx Anesthesia Reactions: No Hx Malignant Hyperthermia: No - Suicidal Assessment Feels Threatened In Home Enviroment: No Family/Social History - Physician Review Nursing Documentation Reviewed: Yes Family/Social History: Unknown Family HX Smoking Status: Never Smoked Hx Alcohol Use: Yes (USED TO DRINK BEER.H/O) Hx Substance Use: No Allergies/Home Meds Allergies/Adverse Reactions: Allergies No Known Allergies Allergy (Verified 03/07/19 05:51) Home Medications: Home Meds Medication Instructions Recorded Confirmed Atorvastatin [Lipitor] 40 mg PO DAILY 01/24/19 03/07/19 Calcitriol [Rocaltrol] 0.25 mcg PO Q3D 01/24/19 03/07/19 Calcium Citrate/Vitamin D3 1 each PO DAILY 01/24/19 03/07/19 [Calcium Citrate - Vit D3 Tab] Ferrous Sulfate [Feosol] 325 mg PO DAILY 01/24/19 03/07/19 Gemfibrozil 600 mg PO BID 01/24/19 03/07/19 Glipizide [Glipizide ER] 10 mg PO DAILY 01/24/19 03/07/19 SITagliptin [Januvia] 50 mg PO DAILY 01/24/19 03/07/19 Spironolactone [Aldactone] 25 mg PO BID 01/24/19 03/07/19 Tamsulosin [Flomax] 0.4 mg PO DAILY 01/24/19 03/07/19 hydrALAZINE [Apresoline] 50 mg PO BID 01/24/19 03/07/19 Enalapril Maleate [Vasotec] 20 mg PO DAILY 03/07/19 03/07/19 Esomeprazole Magnesium [Nexium] 40 mg PO DAILY 03/07/19 03/07/19 Famotidine [Heartburn Prevention] 20 mg PO DAILY 03/07/19 03/07/19 Furosemide [Lasix] 20 mg PO DAILY 03/07/19 03/07/19 Metoprolol Tartrate [Lopressor] 50 mg PO DAILY 03/07/19 03/07/19 Review of Systems - Physician Review All systems were reviewed & negative as marked: Yes - Review of Systems Constitutional: Normal. absent: Fevers Eyes: Normal ENT: Normal Respiratory: Normal. absent: SOB, Cough Cardiovascular: Normal. absent: Chest Pain Gastrointestinal: Normal. absent: Abdominal Pain, Diarrhea, Nausea, Vomiting Genitourinary Male: Urinary Output Changes (+urinary retention). absent: Dysuria, Frequency Musculoskeletal: Normal. absent: Back Pain, Neck Pain Skin: Normal. absent: Rash Neurological: Normal. absent: Headache, Dizziness Endocrine: Normal Hemo/Lymphatic: Normal Psychiatric: Normal Physical Exam Vital Signs Reviewed: Yes Vital Signs Temp Pulse Resp BP Pulse Ox 03/07/19 05:48 97.5 F L 83 18 149/80 97 Temperature: Afebrile Blood Pressure: Normal Pulse: Regular Respiratory Rate: Normal Appearance: Positive for: Well-Appearing, Non-Toxic, Comfortable Pain Distress: None Mental Status: Positive for: Alert and Oriented X 3 - Systems Exam Head: Present: Atraumatic, Normocephalic Pupils: Present: PERRL Extroacular Muscles: Present: EOMI Conjunctiva: Present: Normal Mouth: Present: Moist Mucous Membranes Neck: Present: Normal Range of Motion Respiratory/Chest: Present: Clear to Auscultation, Good Air Exchange. No: Respiratory Distress, Accessory Muscle Use Cardiovascular: Present: Regular Rate and Rhythm, Normal S1, S2. No: Murmurs Abdomen: No: Tenderness, Distention, Peritoneal Signs Back: Present: Normal Inspection Upper Extremity: Present: Normal Inspection. No: Cyanosis, Edema Lower Extremity: Present: Normal Inspection. No: Edema Neurological: Present: GCS=15, CN II-XII Intact, Speech Normal Skin: Present: Warm, Dry, Normal Color. No: Rashes Psychiatric: Present: Alert, Oriented x 3, Normal Insight, Normal Concentration Medical Decision Making ED Course and Treatment: 03/07/19 05:52 Impression: 83 year old male presents for urinary retention Plan: -- Oneill catheter insertion -- Reassess and disposition Prior Visits: Notes and results from previous visits were reviewed. Progress Notes: Oneill catheter insertion to be performed by pt's urologist, Dr. Chávez, in Emergency department. - Scribe Statement The provider has reviewed the documentation as recorded by the Scribe Kori Robbins Provider Scribe Attestation: All medical record entries made by the Scribe were at my direction and personally dictated by me. I have reviewed the chart and agree that the record accurately reflects my personal performance of the history, physical exam, medical decision making, and the department course for this patient. I have also personally directed, reviewed, and agree with the discharge instructions and disposition. Disposition/Present on Arrival - Present on Arrival Any Indicators Present on Arrival: No History of DVT/PE: No History of Uncontrolled Diabetes: No Urinary Catheter: No History of Decub. Ulcer: No History Surgical Site Infection Following: None - Disposition Have Diagnosis and Disposition been Completed?: Yes Diagnosis: Urinary retention Disposition: HOME/ ROUTINE Disposition Time: 06:50 Condition: IMPROVED Discharge Instructions (ExitCare): Urinary Retention (DC) Additional Instructions: follow up with dr chávez Referrals: Court Kwan MD [Primary Care Provider] - Follow up with primary Forms: [employer] (Lao)
[2019-03-07 07:30] VITALS: BP 130/77; PULSE 79; O2SAT 95
== END 2019-03-07 07:37 | disposition home or self-care (01) ==
LOC: ED 05:39
DX: N40.1 Benign prostatic hyperplasia with lower urinary tract symptoms (principal); R33.8 Other retention of urine; E11.9 Type 2 diabetes mellitus without complications; I10 Essential (primary) hypertension; I50.9 Heart failure, unspecified